=== PATIENT | male | born 1940 | race Caucasian/White ===

== ENCOUNTER → 2020-09-04 10:43 | Outpatient (CLI) | payer MEDICARE, SELFPAY ==
[2020-09-04] MEDS: COVID-19 VACC #1, MRNA(MOD) 100 MCG/0.5 ML VIAL IM (10:57)
== END ==
PROVIDERS: Visit Provider Internal Medicine
DX: Z23 Encounter for immunization (principal)
CPT/HCPCS: 0011A; 91301

== ENCOUNTER → 2020-10-02 10:15 | Outpatient (CLI) | payer MEDICARE, SELFPAY ==
[2020-10-02] MEDS: COVID-19 VACC #2, MRNA(MOD) 100 MCG/0.5 ML VIAL IM (10:25)
== END ==
PROVIDERS: Visit Provider Internal Medicine
DX: Z23 Encounter for immunization (principal)
CPT/HCPCS: 0012A; 91301

== ENCOUNTER → 2020-11-26 14:33 | Outpatient (CLI) | payer OTHER, SELFPAY ==
--- NOTE | 2020-11-26 14:36 | DI.ECHO.S_ITS ---
[facility] +---------+ : : [address] : [place] : : : : [id number] : : : : Phone: [phone]+ Echocardiogram Report + + :Name: ROSAURA LYNCH Study Date: 11/26/2020 Height: 67 in : :[facility] ReadingLocation: Weight: 225 lb : : Gender: Male BSA: 2.1 m2 : :: 1940 Age: 80 yrs BP: 170/98 mmHg: :Reason For Study: Congestive Heart Failure : :Ordering Physician: JOYCE, : :NABIL Performed By: Wali Burks : :Referring: NABIL COOK : + + Interpretation Summary Normal sinus rhythm. Normal LV size and wall thickness; there is subtle septal hypokinesis. EF is 55-60%. Suspect stage II diastolic dysfunction consistent with elevated LV filling pressure. Normal chamber sizes. No significant valvular abnormalities. No prior study available for comparison. Procedure: A two-dimensional transthoracic echocardiogram with color flow and Doppler was performed. The study quality was technically adequate. There is no prior echocardiogram noted for this patient. Left Ventricle: The left ventricle is normal in size and wall thickness. Left ventricular systolic function is normal. There is subtle septal hypokinesis. Otherwise normal wall motion. Diastology evaluation is complicated by conflicting data. E/A ratio is reversed which is most consistent with abnormal relaxation with normal filling pressure. However, pulmonary vein PW Doppler demonstrates diastolic flow predominance which is more common with elevated LV filling pressure. Right Ventricle: The right ventricle is normal in size and function. Atria: Both atria are normal in size. There is no Doppler evidence for an interatrial shunt. Mitral Valve: There is mild mitral annular calcification. There is trace mitral regurgitation. Aortic Valve: There is mild aortic valve sclerosis. No aortic regurgitation is present. Tricuspid Valve: The tricuspid valve is normal in structure and function. No tricuspid regurgitation. Pulmonary artery pressures cannot be estimated because of the lack of a measurable TR jet velocity but the IVC suggests a CVP of around 3 mmHg. Pulmonic Valve: The pulmonic valve is not well visualized. There is no pulmonic valvular regurgitation. Great Vessels: The aortic root is normal size. The ascending aorta could not be visualized. The IVC is of normal diameter and collapses greater than 50% with a sniff. This suggests a low right atrial pressure of 3 mm Hg. Pericardium/ Pleura There is no pericardial effusion. There is no pleural effusion. MMode/2D Measurements & Calculations LA A2 area: 15.1 cm2 RA long axis: 3.6 cm LA A4 area: 13.5 cm2 RA area: 12.6 cm2 LA length (vol): 4.4 cm RA vol: 37.7 ml LA vol: 39.9 ml RA : 17.7 ml/m2 LA vol index: 18.8 ml/m2 IVC diam: 1.2 cm RVD1 (basal): 2.5 cm TAPSE: 2.2 cm Doppler Measurements & Calculations Ao V2 max: 124.1 cm/sec LVOT Max Silvano: 116.9 cm/sec Ao V2 mean: 90.7 cm/sec LV V1 max P.5 mmHg Ao max P.2 mmHg LV V1 VTI: 22.3 cm Ao mean P.6 mmHg sev ratio: 0.90 Ao V2 VTI: 24.9 cm MV E max silvano: 66.2 cm/sec MV A max silvano: 92.3 cm/sec MV E/A: 0.72 Med Peak E' Silvano: 7.1 cm/sec E/E' med: 9.4 Lat Peak E' Silvano: 7.3 cm/sec E/E' lat: 9.1 E/e' average: 9.2 MV dec time: 0.29 sec Electronically signed by: Ranjana Rodriges M.D. on Reading Physician:11/27/2020 12:39 AM
== END ==
PROVIDERS: PCP Family Medicine; Referring Provider Internal Medicine; Visit Provider Internal Medicine
DX: I35.8 Other nonrheumatic aortic valve disorders (principal); I50.9 Heart failure, unspecified; J44.9 Chronic obstructive pulmonary disease, unspecified
CPT/HCPCS: 93306

== ENCOUNTER → 2020-12-07 09:01 | Outpatient (CLI) | payer OTHER, SELFPAY ==
[2020-12-07 10:08] LABS: COVID19 -Nasal RAPID Negative (Negative)
== END ==
PROVIDERS: PCP Family Medicine; Referring Provider Family Medicine; Visit Provider Family Medicine
DX: Z20.822 Contact with and (suspected) exposure to COVID-19 (principal)
CPT/HCPCS: 87635; C9803

== ENCOUNTER → 2020-12-07 09:05 | Outpatient (CLI) | payer OTHER, SELFPAY ==
[2020-12-07 09:59] LABS: PCO2 ABG 38.8 mmHg (35-45); pH ABG 7.41 (7.35-7.45)
[2020-12-07 10:00] LABS: Fractionated Inspired Oxygen 28; HCO3 ABG 24 mmol/L (22-26); Oxygen Saturation ABG 97 % (95-100); PO2 ABG 91 mmHg (80-100); TCO2 ABG 26 mmol/L (21-31)
--- NOTE | 2020-12-09 10:29 | PM.PFT.1 ---
Pulmonary Function Test Referral & Results Date Patient Seen: 12/07/20 Requesting provider: Juli Zacarias Indication: COPD Results: The spirometry demonstrates an FVC of 2.69 L which is 78% of predicted. The FEV1 was measured at 0.91 L which is 37% of predicted. The FEV1/FVC ratio was 34 which is 47% of predicted. Following the administration of bronchodilator there was no appreciable change. Lung volumes show an SVC of 3.05 L which is 79% of predicted. The diffusing capacity was measured at 10.56 which is 39% of predicted. No hemoglobin value was provided, so no correction for potential anemia could be made, if appropriate. The maximum voluntary ventilation was severely reduced Interpretation: This study demonstrates severe obstructive lung disease based on FEV1 of less than 1 L. There is no evidence of benefit following bronchodilator Lung volumes are also moderately reduced suggesting moderate restrictive lung disease There is also a severe reduction in diffusing capacity suggesting significant disease at the capillary alveolar level Altogether this is consistent with a diagnosis of COPD
== END ==
PROVIDERS: PCP Family Medicine; Referring Provider Internal Medicine; Visit Provider Internal Medicine
DX: J44.9 Chronic obstructive pulmonary disease, unspecified (principal); J96.11 Chronic respiratory failure with hypoxia; J96.12 Chronic respiratory failure with hypercapnia; R40.0 Somnolence; I50.813 Acute on chronic right heart failure; Z20.822 Contact with and (suspected) exposure to COVID-19; Z87.891 Personal history of nicotine dependence
CPT/HCPCS: 36600; 82805; 87635; 94060; 94726; 94729; C9803

== ENCOUNTER → 2020-12-28 12:13 | Outpatient (CLI) | payer OTHER, SELFPAY ==
[2020-12-28 13:09] LABS: Add Manual Diff / Slide Review NO; Basophils Absolute Auto 0 /uL (0-100); Basophils Percent Auto 0.4 % (0-2); Eosinophils Absolute Auto 200 /uL (0-450); Eosinophils Percent Auto 2.1 % (2-4); Hematocrit 42.4 % (41-53); Hemoglobin 14.3 g/dL (13.5-17.5); Lymphocytes Absolute Auto 1500 /uL (1100-4500); Lymphocytes Percent Auto 17.3 % (25-40); Mean Corpuscular HGB Conc 33.7 % (30-36); Mean Corpuscular Hemoglobin 31.3 PG (26-34); Mean Corpuscular Volume 93.1 fL (80-100); Monocytes Absolute Auto 600 /uL (0-900); Monocytes Percent Auto 6.9 % (3-14); Neutrophils Absolute Auto 6300 /uL (1500-7000); Neutrophils Percent Auto 73.3 % (50-75); Platelet Count 267 X10^3/uL (150-400); Red Blood Cell Count 4.56 X10^6/uL (4.5-5.9); Red Cell Distribution Width 13.7 % (11.6-14.8); White Blood Cell Count 8.5 X10^3/uL (4.5-11.0)
[2020-12-28 13:17] LABS: Alanine Aminotransferase 20 IU/L (<50); Albumin 4.3 g/dL (3.5-5.0); Albumin Globulin Ratio 1.3 (1.0-2.8); Alkaline Phosphatase 115 U/L (38-126); Aspartate Aminotransferase 27 IU/L (17-59); BUN Creatinine Ratio 17.6 (6-22); Bilirubin Total 0.4 mg/dL (0.2-1.3); Blood Urea Nitrogen 18 mg/dL (9-20); Calcium 9.5 mg/dL (8.4-10.2); Carbon Dioxide 25 mmol/L (22-32); Chloride 104 mmol/L (98-107); Estimated Glomerular Filt Rate > 60.0 mL/min (>60); Globulin 3.2 g/dL (1.7-4.1); Glucose 116 mg/dL (80-110); HEMOLYSIS < 15 (0-50); Potassium 4.2 mmol/L (3.4-5.1); Sodium 137 mmol/L (137-145); Total Protein 7.5 g/dL (6.3-8.2)
[2020-12-28 13:26] LABS: NT-proBNP (BNP-Adult 18+) 38 pg/mL (<450)
[2020-12-28 13:57] LABS: TSH w/ Reflex to FT4 1.76 uIU/mL (0.47-4.68)
== END ==
PROVIDERS: PCP Family Medicine; Referring Provider Internal Medicine; Visit Provider Internal Medicine
DX: J44.9 Chronic obstructive pulmonary disease, unspecified (principal); I50.813 Acute on chronic right heart failure; R40.0 Somnolence; J96.11 Chronic respiratory failure with hypoxia; J96.12 Chronic respiratory failure with hypercapnia
CPT/HCPCS: 36415; 80053; 83880; 84443; 85025

== ENCOUNTER → 2021-04-12 10:42 | Outpatient (CLI) | payer OTHER, SELFPAY ==
[2021-04-12 14:33] LABS: COVID19 -Nasal RAPID Negative (Negative)
== END ==
PROVIDERS: PCP Family Medicine; Visit Provider Nurse Practitioner Family
DX: Z20.822 Contact with and (suspected) exposure to COVID-19 (principal)
CPT/HCPCS: 87635

== ENCOUNTER → 2021-04-12 10:50 | Outpatient (CLI) | payer OTHER, SELFPAY ==
[2021-04-12 12:30] LABS: Blood Urea Nitrogen 21 mg/dL (9-20); Calcium 9.6 mg/dL (8.4-10.2); Carbon Dioxide 26 mmol/L (22-32); Chloride 100 mmol/L (98-107); Estimated Glomerular Filt Rate > 60.0 mL/min (>60); Glucose 97 mg/dL (80-110); HEMOLYSIS < 15 (0-50); Potassium 4.5 mmol/L (3.4-5.1); Sodium 136 mmol/L (137-145)
== END ==
PROVIDERS: PCP Family Medicine; Referring Provider Internal Medicine Cardiovascular Disease; Visit Provider Internal Medicine Cardiovascular Disease
DX: I50.33 Acute on chronic diastolic (congestive) heart failure (principal); Z20.822 Contact with and (suspected) exposure to COVID-19
CPT/HCPCS: 36415; 80048; 87635; C9803

== ENCOUNTER → 2021-04-13 10:27 | Outpatient (CLI) | payer OTHER, SELFPAY ==
--- NOTE | 2021-04-14 19:15 | DI.NM.S_ITS ---
PROCEDURE PERFORMED: Pharmacologic vasodilator stress and rest myocardial perfusion imaging with gating to assess ejection fraction and regional wall motion. ORDERING PROVIDER: Dr. Hilda Meza. INDICATIONS: The patient is a 80-year-old male with significant exertional dyspnea and atypical chest pain. VASODILATOR CARDIAC STRESS: Per protocol, 0.4 mg of regadenoson was infused with development of mild dyspnea but no chest discomfort. His resting ECG shows sinus rhythm with a RBBB and associated ST-segment abnormality with fairly low QRS voltage diffusely. With stress, there are no significant ST-segment shifts. He had occasional isolated PVCs, but no complex ectopy. Per protocol, 25.3 millicuries of technetium-99m Myoview was injected and he was imaged 10 minutes later using a gated SPECT acquisition protocol. The day prior he had been injected with 26.6 millicuries of technetium-99m Myoview while at rest and was imaged 20 minutes later, again using a gated SPECT acquisition protocol. FINDINGS: 1. Raw data: There is fairly good myocardial tracer uptake although there is fairly clear evidence for some diaphragmatic attenuation. The lung/heart ratio is mildly increased at 0.46, which can be a sign of pulmonary congestion. TID ratio is normal at 1.08. 2. Quantitated gated SPECT: Post-stress ejection fraction is estimated at 75% without any focal wall motion abnormality and specifically the inferior wall appears to have normal contractility relative to the other segments. Resting ejection fraction is estimated at 60%, although visually appears quite similar to that of the post-stress ejection fraction. Resting end- diastolic volume is normal at 88 mL. 3. Myocardial perfusion imaging: Post-stress supine images shows a mild-to- moderate perfusion defect throughout the inferior wall in a pattern that would be consistent with diaphragmatic attenuation, supported by its complete resolution on the prone images. The resting images show a similar perfusion pattern without any clear areas of improvement. IMPRESSION: 1. Probable normal myocardial perfusion study. 2. Moderate, fixed inferior perfusion defect that resolves on prone imaging, most consistent with diaphragmatic attenuation artifact. There is no compelling evidence for myocardial ischemia or previous myocardial infarction. 3. Normal left ventricular systolic function without any focal wall motion abnormality. The lung/heart ratio is mildly increased at 0.46, which can be a sign of pulmonary congestion, but clinical correlation is recommended. 4. No angina or ECG evidence of ischemia with vasodilator pharmacologic stress. He had a rare isolated PVCs but no complex ectopy. Edwar Scott - ROSALIE/mike/lebron doc#: [id number]/job#: [id number] dd: 04/14/2021 16:54:00 dt: 04/14/2021 18:54:00 DICTATING MD/COPIES TO: Keith Carlin MD; Hilda Meza M.D. COPIES MNE: JUAN FRANCISCO;
== END ==
PROVIDERS: PCP Family Medicine; Referring Provider Internal Medicine Cardiovascular Disease; Visit Provider Internal Medicine Cardiovascular Disease
DX: R07.9 Chest pain, unspecified (principal)
CPT/HCPCS: 78452; 93017; A9502; J2785

== ENCOUNTER 2021-11-03 17:48 | Emergency (ER) | payer OTHER, SELFPAY ==
[2021-11-03] VITALS (7 sets, daily range): BP systolic 137–151; BP diastolic 76–91; PULSE 81–105; RESP 17–32; TEMP 36.8; O2SAT 89–96
--- NOTE | 2021-11-03 18:17 | DI.RAD.S_ITS ---
PROCEDURE: XR CHEST 1V INDICATIONS: SOA TECHNIQUE: One view of the chest was acquired. COMPARISON: None. FINDINGS: Surgical changes and devices: None. Lungs and pleura: Mild increased pulmonary vascularity. Linear left basilar opacities present likely atelectasis. Mediastinum: Mediastinal contours appear normal. Heart size is normal. Bones and chest wall: No suspicious bony lesions. Overlying soft tissues appear unremarkable. IMPRESSION: Increased vascularity suggestive of edema. Dictated by: Lelo Javed M.D. on 11/03/2021 at 18:47 Approved by: Lelo Javed M.D. on 11/03/2021 at 18:48
[2021-11-03 18:52] LABS: Add Manual Diff / Slide Review NO; Basophils Absolute Auto 0 /uL (0-100); Basophils Percent Auto 0.3 % (0-2); Eosinophils Absolute Auto 0 /uL (0-450); Eosinophils Percent Auto 0.6 % (2-4); Hematocrit 37.2 % (41-53); Hemoglobin 12.9 g/dL (13.5-17.5); Lymphocytes Absolute Auto 400 /uL (1100-4500); Lymphocytes Percent Auto 6.6 % (25-40); Mean Corpuscular HGB Conc 34.7 % (30-36); Mean Corpuscular Hemoglobin 32.7 PG (26-34); Mean Corpuscular Volume 94.2 fL (80-100); Monocytes Absolute Auto 800 /uL (0-900); Monocytes Percent Auto 13.8 % (3-14); Neutrophils Absolute Auto 4600 /uL (1500-7000); Neutrophils Percent Auto 78.7 % (50-75); Platelet Count 191 X10^3/uL (150-400); Red Blood Cell Count 3.95 X10^6/uL (4.5-5.9); Red Cell Distribution Width 13.5 % (11.6-14.8); White Blood Cell Count 5.9 X10^3/uL (4.5-11.0)
[2021-11-03 19:13] LABS: Creatine Kinase 89 U/L (55-170); Lactate (Lactic Acid) 1.1 mmol/L (0.7-2.1); Magnesium 1.7 mg/dL (1.6-2.3)
[2021-11-03 19:14] LABS: Alanine Aminotransferase 23 IU/L (<50); Albumin 4.3 g/dL (3.5-5.0); Albumin Globulin Ratio 1.4 (1.0-2.8); Alkaline Phosphatase 80 U/L (38-126); Aspartate Aminotransferase 34 IU/L (17-59); BUN Creatinine Ratio 16.1 (6-22); Bilirubin Total 0.6 mg/dL (0.2-1.3); Blood Urea Nitrogen 19 mg/dL (9-20); Calcium 8.8 mg/dL (8.4-10.2); Carbon Dioxide 25 mmol/L (22-32); Chloride 99 mmol/L (98-107); Estimated Glomerular Filt Rate > 60 mL/min (>60); Globulin 3.1 g/dL (1.7-4.1); Glucose 112 mg/dL (80-110); HEMOLYSIS 27 (0-50); Lipase 42 U/L (23-300); Potassium 3.7 mmol/L (3.4-5.1); Sodium 135 mmol/L (137-145); Total Protein 7.4 g/dL (6.3-8.2)
[2021-11-03 19:23] LABS: NT-proBNP (BNP-Adult 18+) 129 pg/mL (<450)
[2021-11-03 19:25] LABS: Troponin I < 0.012 ng/mL (0.01-0.034)
[2021-11-03 19:29] LABS: Procalcitonin 0.07 ng/mL (<0.5)
[2021-11-03] MEDS: SODIUM CHLORIDE 0.9% 1,000 ML 125 ML IV (19:48)
[2021-11-03 19:49] LABS: COVID19 -Nasal RAPID POSITIVE (Negative)
--- NOTE | 2021-11-03 20:14 | ED_ITS ---
HPI - General Adult General Chief complaint: Shortness of Breath/Dyspnea Stated complaint: Chills, headache Time Seen by Provider: 11/03/21 18:16 Source: patient Mode of arrival: Ambulatory History of Present Illness HPI narrative: Patient is a 81-year-old male. Has a history of COPD. Is on home oxygen all the time. Normally 3 L. According to the patient his at baseline he has significant issues with getting around without becoming short of breath. Can normally take approximately 15 steps without having to stop and catch his breath. Patient is vaccinated against COVID-19. Has had 2 Moderna vaccines but has not had the booster vaccine. Over the past 24-48 hours he has developed chills and headache and a worsening of his dyspnea on exertion. He has not had to increase his oxygen use at home. His who is also vaccinated had COVID symptoms earlier this week but she has recovered. Patient denies chest pain. Is having a nonproductive cough. No abdominal pain. No rashes. No sinus congestion. No urinary symptoms. No change in bowel habits. Related Data Previous Rx's Medication Instructions Recorded nirmatrelvir 300 mg (150 mg x See Rx Instructions .ROUTE 11/03/21 2)-ritonavir 100 mg tablet (EUA) .COMPLEX #15 tab (Paxlovid 300 mg () Allergies Allergy/AdvReac Type Severity Reaction Status Date / Time No Known Drug Allergies Allergy Verified 11/03/21 18:01 Review of Systems Review of Systems ROS Unobtainable: All systems reviewed & are unremarkable except as noted in HPI and below Patient History Medical History COPD (chronic obstructive pulmonary disease) Social History marital status: lives independently: Yes Exam Initial Vital Signs Initial Vital Signs: Vital Signs Temperature 98.2 F 11/03/21 17:56 Pulse Rate 105 H 11/03/21 17:56 Respiratory Rate 32 H 11/03/21 17:56 Blood Pressure 151/78 H 11/03/21 17:56 Pulse Oximetry 89 L 11/03/21 17:56 Const General: cooperative and well groomed [facility] Head: normal to inspection and normocephalic Eyes General: Yes appearance normal, both eyes and all related structures Chest Chest: normal inspection of the chest Resp Effort & Inspection: labored, no respiratory distress and tachypneic Cardio Rate: regular rate Rhythm: regular rhythm GI Inspection: normal to inspection Palpation: soft and No tender Skin General: no rashes or lesions noted Neuro General: patient alert, patient awake, patient oriented x3 and moves all extremities Extrem General: No edema Psych Appearance: grossly normal Scores GCS Yessi coma scale eye opening: Spontaneous Yessi coma scale verbal response: Orientated [place] coma scale motor response: Obey commands [place] coma scale total score: 15 Course Orders Ordered: ED Orders 11/03/21 18:07 EKG-12 Lead Stat Measure peak expiratory flow ONCE RT Consult Eval and Treat Now 11/03/21 18:17 XR chest 1V Stat 11/03/21 18:41 BNP [NT-proBNP (BNP-Adult 18+)] Stat COVID19 -Nasal RAPID/Pre-Proc Stat Complete Blood Count AUTO DIFF Stat Comprehensive Metabolic Panel Stat Lactate (Lactic Acid) Stat Lipase Stat Magnesium Stat Procalcitonin Stat Troponin & CK Cardiac Panel Stat 11/03/21 19:20 Blood Culture Stat Discontinued Medications Sodium Chloride (Normal Saline 0.9%) 1,000 mls @ 125 mls/hr IV CONT GAIL Last Infusion: 11/03/21 20:13 Dose: 0 mls/hr Documented by: Admin: 11/03/21 19:48 Dose: 125 mls/hr Documented by: LUDWIG Vital Signs Vital signs: Vital Signs - 8 hr 11/03/21 17:56 11/03/21 18:39 11/03/21 18:40 Temperature 98.2 F Pulse Rate 105 H 94 H Respiratory Rate 32 H Blood Pressure 151/78 H 149/76 H Pulse Oximetry 89 L 93 93 11/03/21 19:00 11/03/21 19:30 11/03/21 20:00 Temperature Pulse Rate 87 86 81 Respiratory Rate 22 17 22 Blood Pressure 145/91 H 140/77 Pulse Oximetry 95 96 95 11/03/21 20:01 Temperature Pulse Rate 81 Respiratory Rate 23 Blood Pressure 137/83 Pulse Oximetry 96 Medical Decision Making Lab Data Lab results reviewed: Yes I reviewed the patient's lab results. Result diagrams: 11/03/21 18:41 11/03/21 18:41 Labs: Lab Results 05/25/22 05/25/22 05/25/22 Range/Units 18:41 18:41 18:41 WBC 5.9 (4.5-11.0) X10^3/uL RBC 3.95 L (4.5-5.9) X10^6/uL Hgb 12.9 L (13.5-17.5) g/dL Hct 37.2 L (41-53) % MCV 94.2 (80-100) fL MCH 32.7 (26-34) PG MCHC 34.7 (30-36) % RDW 13.5 (11.6-14.8) % Plt Count 191 (150-400) X10^3/uL Neut % (Auto) 78.7 H (50-75) % Lymph % (Auto) 6.6 L (25-40) % [place] % (Auto) 13.8 (3-14) % Eos % (Auto) 0.6 L (2-4) % Baso % (Auto) 0.3 (0-2) % Neut # (Auto) 4600 (0777-4687) /uL Lymph # (Auto) 400 L (0007-8710) /uL [place] # (Auto) 800 (0-900) /uL Eos # (Auto) 0 (0-450) /uL Baso # (Auto) 0 (0-100) /uL Sodium 135 L (137-145) mmol/L Potassium 3.7 (3.4-5.1) mmol/L Chloride 99 (98-107) mmol/L Carbon Dioxide 25 (22-32) mmol/L BUN 19 (9-20) mg/dL Creatinine 1.18 (0.66-1.25) mg/dL Estimated GFR > 60 (>60) mL/min BUN/Creatinine Ratio 16.1 (6-22) Glucose 112 H (80-110) mg/dL Lactate (0.7-2.1) mmol/L Calcium 8.8 (8.4-10.2) mg/dL Magnesium (1.6-2.3) mg/dL Total Bilirubin 0.6 (0.2-1.3) mg/dL AST 34 (17-59) IU/L ALT 23 (<50) IU/L Alkaline Phosphatase 80 (38-126) U/L Total Creatine Kinase (55-170) U/L CK-MB (CK-2) CK-MB (CK-2) Rel Index Troponin I (0.01-0.034) ng/mL NT-Pro-B Natriuret Pep (<450) pg/mL Total Protein 7.4 (6.3-8.2) g/dL Albumin 4.3 (3.5-5.0) g/dL Globulin 3.1 (1.7-4.1) g/dL Albumin/Globulin Ratio 1.4 (1.0-2.8) Lipase (23-300) U/L Procalcitonin (<0.5) ng/mL SARS-CoV-2 (PCR) Positive H (Negative) 11/03/21 11/03/21 11/03/21 Range/Units 18:41 18:41 18:41 WBC (4.5-11.0) X10^3/uL RBC (4.5-5.9) X10^6/uL Hgb (13.5-17.5) g/dL Hct (41-53) % MCV (80-100) fL MCH (26-34) PG MCHC (30-36) % RDW (11.6-14.8) % Plt Count (150-400) X10^3/uL Neut % (Auto) (50-75) % Lymph % (Auto) (25-40) % [place] % (Auto) (3-14) % Eos % (Auto) (2-4) % Baso % (Auto) (0-2) % Neut # (Auto) (8485-7658) /uL Lymph # (Auto) (2085-7230) /uL [place] # (Auto) (0-900) /uL Eos # (Auto) (0-450) /uL Baso # (Auto) (0-100) /uL Sodium (137-145) mmol/L Potassium (3.4-5.1) mmol/L Chloride (98-107) mmol/L Carbon Dioxide (22-32) mmol/L BUN (9-20) mg/dL Creatinine (0.66-1.25) mg/dL Estimated GFR (>60) mL/min BUN/Creatinine Ratio (6-22) Glucose (80-110) mg/dL Lactate 1.1 (0.7-2.1) mmol/L Calcium (8.4-10.2) mg/dL Magnesium 1.7 (1.6-2.3) mg/dL Total Bilirubin (0.2-1.3) mg/dL AST (17-59) IU/L ALT (<50) IU/L Alkaline Phosphatase (38-126) U/L Total Creatine Kinase 89 (55-170) U/L CK-MB (CK-2) TNP CK-MB (CK-2) Rel Index TNP Troponin I < 0.012 (0.01-0.034) ng/mL NT-Pro-B Natriuret Pep (<450) pg/mL Total Protein (6.3-8.2) g/dL Albumin (3.5-5.0) g/dL Globulin (1.7-4.1) g/dL Albumin/Globulin Ratio (1.0-2.8) Lipase 42 (23-300) U/L Procalcitonin 0.07 (<0.5) ng/mL SARS-CoV-2 (PCR) (Negative) 11/03/21 Range/Units 18:41 WBC (4.5-11.0) X10^3/uL RBC (4.5-5.9) X10^6/uL Hgb (13.5-17.5) g/dL Hct (41-53) % MCV (80-100) fL MCH (26-34) PG MCHC (30-36) % RDW (11.6-14.8) % Plt Count (150-400) X10^3/uL Neut % (Auto) (50-75) % Lymph % (Auto) (25-40) % [place] % (Auto) (3-14) % Eos % (Auto) (2-4) % Baso % (Auto) (0-2) % Neut # (Auto) (1179-5635) /uL Lymph # (Auto) (7157-7088) /uL [place] # (Auto) (0-900) /uL Eos # (Auto) (0-450) /uL Baso # (Auto) (0-100) /uL Sodium (137-145) mmol/L Potassium (3.4-5.1) mmol/L Chloride (98-107) mmol/L Carbon Dioxide (22-32) mmol/L BUN (9-20) mg/dL Creatinine (0.66-1.25) mg/dL Estimated GFR (>60) mL/min BUN/Creatinine Ratio (6-22) Glucose (80-110) mg/dL Lactate (0.7-2.1) mmol/L Calcium (8.4-10.2) mg/dL Magnesium (1.6-2.3) mg/dL Total Bilirubin (0.2-1.3) mg/dL AST (17-59) IU/L ALT (<50) IU/L Alkaline Phosphatase (38-126) U/L Total Creatine Kinase (55-170) U/L CK-MB (CK-2) CK-MB (CK-2) Rel Index Troponin I (0.01-0.034) ng/mL NT-Pro-B Natriuret Pep 129 (<450) pg/mL Total Protein (6.3-8.2) g/dL Albumin (3.5-5.0) g/dL Globulin (1.7-4.1) g/dL Albumin/Globulin Ratio (1.0-2.8) Lipase (23-300) U/L Procalcitonin (<0.5) ng/mL SARS-CoV-2 (PCR) (Negative) Imaging Data Chest x-ray: Radiologist's Impression: [address] [address] XRay Report Signed Patient: Edwar Scott MR#: [id number] : 1940 Acct:[id number] Age/Sex: 81 / M Date of Service: 11/03/21 Loc: ED Accession Number: [id number] ?? Procedure: XR chest 1V Ordering Provider: Carlos Marquez D.O. PROCEDURE:? XR CHEST 1V ? INDICATIONS:? SOA ? TECHNIQUE:? One view of the chest was acquired.? ? COMPARISON:? None. ? FINDINGS:? ? Surgical changes and devices:? None.? ? Lungs and pleura:? Mild increased pulmonary vascularity.? Linear left basilar opacities present likely atelectasis. ? Mediastinum:? Mediastinal contours appear normal.? Heart size is normal.? ? Bones and chest wall:? No suspicious bony lesions.? Overlying soft tissues appear unremarkable.? ? IMPRESSION:? Increased vascularity suggestive of edema. ? ? Dictated by: Lelo Javed M.D. on 11/03/2021 at 18:47 ? ? Approved by: Lelo Javed M.D. on 11/03/2021 at 18:48?? ECG Data Attestation: I personally reviewed and interpreted this ECG as follows: Interpretation: Sinus rhythm Ventricular rate 93 Normal axis QRS 136 milliseconds QTC [address] T wave changes MDM Narrative Medical decision making narrative: Patient's COVID test today is positive. On her 3 L of oxygen by nasal cannula his oxygen saturations were 95% or greater. Patient denies chest pain. Low suspicion for ACS. I do suspect that his presenting symptoms are related to the COVID-19. Had a discussion with the patient as at bedside regarding op tions. We discussed his very real potential for worsening given his significant underlying respiratory pathology. We discussed the risks and benefits of being admitted to the hospital which would be observation and being in the hospital with his symptoms were to worsen versus being discharged home. Informed the patient that he does have oxygen at home that he could increase if needed. He does have a pulse oximeter at home. We discussed that there would not be any specific treatment with being admitted to the hospital would be for observation of worsening respiratory status which she is at risk for given his issues. After this discussion the patient opted to be discharged home. He is alert oriented x3. Has a GCS of 15. In my opinion has the capacity to make decisions. He is a candidate for Paxlovid being given his renal function today does not need renal adjustments. This was sent to pharmacy his choice. We discussed returning to the emergency department if his symptoms worsen or if he finds he is needing more than 5 L of oxygen by nasal cannula to maintain his her respiratory status. He is with his who can observe him. He will return if his symptoms worsen. Discharge Plan Departure Patient Disposition: Home Clinical Impression: COVID-19, COPD (chronic obstructive pulmonary disease) Instructions: DI for COVID-19 (Suspected or Confirmed ) Activity Restrictions/Additional Instructions: A prescription for paxlovid was transmitted to [facility] pharmacy. It is a new medication for the oral treatment of COVID-19. Please start taking it as directed. Use your oxygen at home like we discussed. You can increase your oxygen to 4-5L as needed however if you are consistently needing above 5L in you need to return to the emergency department. If you have any other worsening symptoms please return to the emergency department as well. Contact your primary doctor for follow-up. Prescriptions: New Paxlovid (EUA) 150 mg x 2- 100 mg tablet See Rx Instructions .ROUTE .COMPLEX Qty: 15 0RF Rx Instructions: take ONE 150 mg tablet of nirmatrelvir with ONE 100 mg tablet of ritonavir twice daily for 5 days Referrals: Oli Cole MD [Primary Care Provider] -
== END 2021-11-03 20:42 | disposition home or self-care (01) ==
PROVIDERS: Emergency Provider Emergency Medicine; PCP Family Medicine
DX: U07.1 COVID-19 (principal); J44.9 Chronic obstructive pulmonary disease, unspecified
CPT/HCPCS: 36415; 71045; 80053; 82550; 83605; 83690; 83735; 83880; 84145; 84484; 85025; 87040; 87635; 93005; 99284; 99285; C9803

== ENCOUNTER 2022-12-03 20:01 | Inpatient (IN) | payer OTHER, SELFPAY ==
[2022-12-03] VITALS (20 sets, daily range): BP systolic 128–182; BP diastolic 72–91; PULSE 103–150; RESP 22–38; TEMP 36.8; O2SAT 90–97
--- NOTE | 2022-12-03 20:06 | DI.RAD.S_ITS ---
PROCEDURE: XR CHEST 1V INDICATIONS: short of breath TECHNIQUE: One view of the chest was acquired. COMPARISON: [facility], CR, XR CHEST 1V, 11/03/2021, 18:20. FINDINGS: Surgical changes and devices: None. Lungs and pleura: Multifocal right and left basilar pulmonary infiltrate and/or atelectasis. Pleural spaces are clear Mediastinum: Mediastinal contours appear normal. Heart size is normal. Bones and chest wall: No suspicious bony lesions. Overlying soft tissues appear unremarkable. Generalized decreased osseous mineralization noted. IMPRESSION: Multifocal atelectasis and or infiltrate Approved by: Kaiden Daniel M.D. on 12/03/2022 at 19:38
[2022-12-03] MEDS: ALBUTEROL/IPRATROPIUM 3 ML AMPUL INH (20:12)
[2022-12-03 20:17] LABS: Add Manual Diff / Slide Review NO; Basophils Absolute Auto 0 /uL (0-100); Basophils Percent Auto 0.5 % (0-2); Eosinophils Absolute Auto 100 /uL (0-450); Eosinophils Percent Auto 0.9 % (2-4); Hematocrit 41.5 % (41-53); Hemoglobin 13.7 g/dL (13.5-17.5); Lymphocytes Absolute Auto 900 /uL (1100-4500); Lymphocytes Percent Auto 12.9 % (25-40); Mean Corpuscular HGB Conc 33.1 % (30-36); Mean Corpuscular Hemoglobin 31.2 PG (26-34); Mean Corpuscular Volume 94.3 fL (80-100); Monocytes Absolute Auto 900 /uL (0-900); Monocytes Percent Auto 13.8 % (3-14); Neutrophils Absolute Auto 4900 /uL (1500-7000); Neutrophils Percent Auto 71.9 % (50-75); Platelet Count 219 X10^3/uL (150-400); Red Cell Distribution Width 14.3 % (11.6-14.8); White Blood Cell Count 6.8 X10^3/uL (4.5-11.0)
[2022-12-03 20:24] LABS: Lactate (Lactic Acid) 1.5 mmol/L (0.7-2.1)
[2022-12-03] MEDS: methylPREDNISolone 125 MG/2 ML VIAL IV (20:24)
[2022-12-03 20:25] LABS: Alanine Aminotransferase 23 IU/L (<50); Albumin 4.2 g/dL (3.5-5.0); Albumin Globulin Ratio 1.2 (1.0-2.8); Alkaline Phosphatase 108 U/L (38-126); Aspartate Aminotransferase 30 IU/L (17-59); BUN Creatinine Ratio 15.2 (6-22); Bilirubin Total 0.4 mg/dL (0.2-1.3); Blood Urea Nitrogen 16 mg/dL (9-20); Calcium 8.9 mg/dL (8.4-10.2); Carbon Dioxide 28 mmol/L (22-32); Chloride 100 mmol/L (98-107); Creatine Kinase 172 U/L (55-170); Estimated Glomerular Filt Rate > 60 mL/min (>60); Globulin 3.6 g/dL (1.7-4.1); Glucose 117 mg/dL (80-110); HEMOLYSIS < 15 (0-50); Lipase 37 U/L (23-300); Potassium 4.3 mmol/L (3.4-5.1); Sodium 136 mmol/L (137-145); Total Protein 7.8 g/dL (6.3-8.2)
[2022-12-03 20:37] LABS: NT-proBNP (BNP-Adult 18+) 373 pg/mL (<450); Troponin I < 0.012 ng/mL (0.01-0.034)
[2022-12-03] MEDS: ALBUTEROL 2.5 MG/3 ML NEB (ADULT) 10 MG INH (20:38)
[2022-12-03 20:41] LABS: Procalcitonin 0.06 ng/mL (<0.5)
[2022-12-03 21:25] LABS: Adenovirus Not Detected (Not Detect); B. parapertussis Not Detected (Not Detecte); Bordetella pertussis Not Detected (Not Detecte); Chlamydophila pneumoniae Not Detected (Not Detect); Coronavirus 229E Not Detected (Not Detect); Coronavirus HKU1 Not Detected (Not Detect); Coronavirus NL 63 Not Detected (Not Detect); Coronavirus OC43 Not Detected (Not Detect); Human Metapneumovirus Not Detected (Not Detect); Human Rhinovirus/Enterovirus Not Detected (Not Detect); Influenza A Not Detected (Not Detect); Influenza B Not Detected (Not Detect); Mycoplasma pneumoniae Not Detected (Not Detect); Parainfluenza Virus 1 Not Detected (Not Detect); Parainfluenza Virus 2 Not Detected (Not Detect); Parainfluenza Virus 3 Not Detected (Not Detect); Parainfluenza Virus 4 Detected (Not Detect); Respiratory Syncytial Virus Not Detected (Not Detect); SARS- CoV-2 Not Detected (Not Detecte)
--- NOTE | 2022-12-03 22:21 | ED.SOB ---
HPI - SOB/Dyspnea General Chief Complaint: Shortness of Breath/Dyspnea Stated Complaint: sob/cough Time Seen by Provider: 12/03/22 20:06 Source: patient and EMS Mode of arrival: EMS History of Present Illness HPI Narrative: Patient is a 82-year-old male history of COPD chronically on home oxygen 3 L presenting with upper respiratory like symptoms and worsening shortness of breath. He reports that he and his have both had a cold. Today his breathing got significantly worse was found to be hypoxic in the 80s by EMS on his home O2. He has a productive cough reports slightly more mucus normal. No chest pain. He is pursed lip breathing but reports that he is always pursed lip breathing. Related Data Previous Rx's Medication Instructions Recorded nirmatrelvir 300 mg (150 mg See Rx Instructions PO .COMPLEX 11/03/21 x2)-ritonavir 100 mg tablet,dose #15 tabs pack(EUA) (Paxlovid) Allergies Allergy/AdvReac Type Severity Reaction Status Date / Time No Known Drug Allergies Allergy Verified 11/03/21 18:01 Review of Systems Review of Systems ROS Unobtainable: All systems reviewed & are unremarkable except as noted in HPI and below Patient History Medical History COPD (chronic obstructive pulmonary disease) Social History marital status: household members: spouse lives independently: Yes Smoking Status: Former smoker Smoking Status: Former smoker alcohol intake frequency: a few times a week Alcohol type: wine Substance Use Type: does not use Exam Initial Vital Signs Initial Vital Signs: Vital Signs Pulse Rate 122 H 12/03/22 20:08 Respiratory Rate 26 H 12/03/22 20:08 Pulse Oximetry 90 L 12/03/22 20:08 GENERAL: Alert 82-year-old male moderate respiratory distress chronically ill HEENT: Head atraumatic,EOMI, pupils reactive, face symmetric, [moist] mucous membranes CARDIOVASCULAR: Regular rate and rhythm without murmurs, rubs or gallops. RESPIRATORY: Decreased breath sounds bilaterally with bilateral wheezing. ABDOMEN: Soft, nontender. Normoactive bowel sounds all 4 quadrants. No guarding or rebound. EXTREMITIES: Normal range of motion, no clubbing or edema. Neurovascularly intact NEUROLOGICAL: Alert and oriented x4. SKIN: Warm, dry, no laceration, no petechiae, no rashes or lesions. Course Orders Ordered: ED Orders 12/03/22 23:30 Blood Culture Stat Albuterol (Albuterol 2.5 Mg/3 Ml Neb (Adult)) 2.5 mg INH [id number] PRN PRN Reason: Wheezing Last Admin: 12/04/22 04:00 Dose: 2.5 mg Documented By: MR Albuterol/Ipratropium (Albuterol/Ipratropium 3 Ml Ampul) 3 ml INH [id number] [id number] Last Admin: 12/04/22 07:21 Dose: 3 ml Documented By: KRISTINE Budesonide (Budesonide 0.5 Mg/2 Ml Neb) 0.5 mg INH RTBID GAIL Last Admin: 12/04/22 07:32 Dose: 0.5 mg Documented By: KRISTINE Sodium Chloride (Sodium Chloride 0.9% Flush) 10 ml IV PRN PRN PRN Reason: Flush Sodium Chloride (Sodium Chloride 0.9% Flush) 10 ml IV BID GAIL Discontinued Medications Albuterol (Albuterol 2.5 Mg/3 Ml Neb (Adult)) 10 mg INH NOW ONE Stop: 12/03/22 20:33 Last Admin: 12/03/22 20:38 Dose: 10 mg Documented By: Albuterol (Albuterol 2.5 Mg/3 Ml Neb (Adult)) 2.5 mg INH [id number] GAIL Albuterol/Ipratropium (Albuterol/Ipratropium 3 Ml Ampul) 3 ml INH NOW ONE Stop: 12/03/22 20:07 Last Admin: 12/03/22 20:12 Dose: 3 ml Documented By: MR Ceftriaxone Sodium 2,000 mg/ (Sodium Chloride) 100 mls @ 200 mls/hr IV NOW ONE Stop: 12/03/22 23:22 Last Infusion: 12/04/22 00:21 Dose: 0 mls/hr Documented By: Admin: 12/03/22 23:51 Dose: 200 mls/hr Documented By: CESILIA Azithromycin 500 mg/ Dextrose 250 mls @ 250 mls/hr IV NOW ONE Stop: 12/03/22 23:22 Last Infusion: 12/04/22 02:07 Dose: 0 mls/hr Documented By: Admin: 12/04/22 00:29 Dose: 250 mls/hr Documented By: CESILIA Methylprednisolone (Methylprednisolone 125 Mg/2 Ml Vial) 125 mg IV NOW ONE Stop: 12/03/22 20:07 Last Admin: 12/03/22 20:24 Dose: 125 mg Documented By: CESILIA Vital Signs Vital signs: Vital Signs - 8 hr 12/03/22 20:09 12/03/22 20:14 Temperature 98.2 F Pulse Rate 150 H 103 H Respiratory Rate 24 38 H Blood Pressure 171/91 H Pulse Oximetry 92 93 Oxygen Delivery Method Nasal Cannula Nasal Cannula Oxygen Flow Rate 3 3 MDM - SOB/Dyspnea Lab Data 12/03/22 20:05 12/03/22 20:05 Labs: Lab Results 12/03/22 12/03/22 12/03/22 Range/Units 20:05 20:05 20:05 WBC 6.8 (4.5-11.0) X10^3/uL RBC 4.40 L (4.5-5.9) X10^6/uL Hgb 13.7 (13.5-17.5) g/dL Hct 41.5 (41-53) % MCV 94.3 (80-100) fL MCH 31.2 (26-34) PG MCHC 33.1 (30-36) % RDW 14.3 (11.6-14.8) % Plt Count 219 (150-400) X10^3/uL Neut % (Auto) 71.9 (50-75) % Lymph % (Auto) 12.9 L (25-40) % [place] % (Auto) 13.8 (3-14) % Eos % (Auto) 0.9 L (2-4) % Baso % (Auto) 0.5 (0-2) % Neut # (Auto) 4900 (8071-9010) /uL Lymph # (Auto) 900 L (6561-6415) /uL [place] # (Auto) 900 (0-900) /uL Eos # (Auto) 100 (0-450) /uL Baso # (Auto) 0 (0-100) /uL Sodium 136 L (137-145) mmol/L Potassium 4.3 (3.4-5.1) mmol/L Chloride 100 (98-107) mmol/L Carbon Dioxide 28 (22-32) mmol/L BUN 16 (9-20) mg/dL Creatinine 1.05 (0.66-1.25) mg/dL Estimated GFR > 60 (>60) mL/min BUN/Creatinine Ratio 15.2 (6-22) Glucose 117 H (80-110) mg/dL Lactate 1.5 (0.7-2.1) mmol/L Calcium 8.9 (8.4-10.2) mg/dL Total Bilirubin 0.4 (0.2-1.3) mg/dL AST 30 (17-59) IU/L ALT 23 (<50) IU/L Alkaline Phosphatase 108 (38-126) U/L Total Creatine Kinase 172 H (55-170) U/L CK-MB (CK-2) TNP CK-MB (CK-2) Rel Index TNP Troponin I < 0.012 (0.01-0.034) ng/mL NT-Pro-B Natriuret Pep 373 (<450) pg/mL Total Protein 7.8 (6.3-8.2) g/dL Albumin 4.2 (3.5-5.0) g/dL Globulin 3.6 (1.7-4.1) g/dL Albumin/Globulin Ratio 1.2 (1.0-2.8) Lipase 37 (23-300) U/L Procalcitonin 0.06 (<0.5) ng/mL Chlamy pneumoniae PCR (Not Detect) Adenovirus (PCR) (Not Detect) B. pertussis DNA (PCR) (Not Detecte) B.parapertussis DNA PCR (Not Detecte) Coronavirus OC43 (PCR) (Not Detect) Coronavirus HKU1 (PCR) (Not Detect) Coronavirus 229E (PCR) (Not Detect) SARS-CoV-2 (PCR) (Not Detecte) Coronavirus NL63 (PCR) (Not Detect) Human Metapneumovir PCR (Not Detect) Influenza Type A (PCR) (Not Detect) Influenza Type B (PCR) (Not Detect) M. pneumoniae (PCR) (Not Detect) Parainfluenza 1 (PCR) (Not Detect) Parainfluenza 2 (PCR) (Not Detect) Parainfluenza 3 (PCR) (Not Detect) Parainfluenza 4 (PCR) (Not Detect) RSV (PCR) (Not Detect) Entero/Rhino (PCR) (Not Detect) 12/03/22 Range/Units 20:05 WBC (4.5-11.0) X10^3/uL RBC (4.5-5.9) X10^6/uL Hgb (13.5-17.5) g/dL Hct (41-53) % MCV (80-100) fL MCH (26-34) PG MCHC (30-36) % RDW (11.6-14.8) % Plt Count (150-400) X10^3/uL Neut % (Auto) (50-75) % Lymph % (Auto) (25-40) % [place] % (Auto) (3-14) % Eos % (Auto) (2-4) % Baso % (Auto) (0-2) % Neut # (Auto) (0098-4198) /uL Lymph # (Auto) (9531-2720) /uL [place] # (Auto) (0-900) /uL Eos # (Auto) (0-450) /uL Baso # (Auto) (0-100) /uL Sodium (137-145) mmol/L Potassium (3.4-5.1) mmol/L Chloride (98-107) mmol/L Carbon Dioxide (22-32) mmol/L BUN (9-20) mg/dL Creatinine (0.66-1.25) mg/dL Estimated GFR (>60) mL/min BUN/Creatinine Ratio (6-22) Glucose (80-110) mg/dL Lactate (0.7-2.1) mmol/L Calcium (8.4-10.2) mg/dL Total Bilirubin (0.2-1.3) mg/dL AST (17-59) IU/L ALT (<50) IU/L Alkaline Phosphatase (38-126) U/L Total Creatine Kinase (55-170) U/L CK-MB (CK-2) CK-MB (CK-2) Rel Index Troponin I (0.01-0.034) ng/mL NT-Pro-B Natriuret Pep (<450) pg/mL Total Protein (6.3-8.2) g/dL Albumin (3.5-5.0) g/dL Globulin (1.7-4.1) g/dL Albumin/Globulin Ratio (1.0-2.8) Lipase (23-300) U/L Procalcitonin (<0.5) ng/mL Chlamy pneumoniae PCR Not detected (Not Detect) Adenovirus (PCR) Not detected (Not Detect) B. pertussis DNA (PCR) Not detected (Not Detecte) B.parapertussis DNA PCR Not detected (Not Detecte) Coronavirus OC43 (PCR) Not detected (Not Detect) Coronavirus HKU1 (PCR) Not detected (Not Detect) Coronavirus 229E (PCR) Not detected (Not Detect) SARS-CoV-2 (PCR) Not detected (Not Detecte) Coronavirus NL63 (PCR) Not detected (Not Detect) Human Metapneumovir PCR Not detected (Not Detect) Influenza Type A (PCR) Not detected (Not Detect) Influenza Type B (PCR) Not detected (Not Detect) M. pneumoniae (PCR) Not detected (Not Detect) Parainfluenza 1 (PCR) Not detected (Not Detect) Parainfluenza 2 (PCR) Not detected (Not Detect) Parainfluenza 3 (PCR) Not detected (Not Detect) Parainfluenza 4 (PCR) Detected H (Not Detect) RSV (PCR) Not detected (Not Detect) Entero/Rhino (PCR) Not detected (Not Detect) Imaging Data Chest x-ray: Radiologist's Impression: PROCEDURE:? XR CHEST 1V ? INDICATIONS:? short of breath ? TECHNIQUE:? One view of the chest was acquired.? ? COMPARISON:? [facility], , XR CHEST 1V, 11/03/2021, 18:20. ? FINDINGS:? ? Surgical changes and devices:? None.? ? Lungs and pleura:? Multifocal right and left basilar pulmonary infiltrate and/or atelectasis.? Pleural spaces are clear ? Mediastinum:? Mediastinal contours appear normal.? Heart size is normal.? ? Bones and chest wall:? No suspicious bony lesions.? Overlying soft tissues appear unremarkable.? Generalized decreased osseous mineralization noted. ? IMPRESSION:? ? Multifocal atelectasis and or infiltrate ? ? ? Approved by: Kaiden Daniel M.D. on 12/03/2022 at 19:38? ECG Data Interpretation: Sinus arrhythmia rate 110 ID interval 178 QRS 128 QTC 479 right bundle-branch block noted similar to previous EKG without ST changes MDM Narrative Medical decision making narrative: Patient 82-year-old male history of COPD chronically on home O2 presenting with increasing shortness of breath and viral illness type symptoms. He is found to be positive for parainfluenza. Chest x-ray shows multifocal atelectasis and/or infiltrate. He initially required DuoNeb continuous albuterol which did improve his breathing. However he still feels like he is not back to baseline. He has no leukocytosis no anemia no CONNIE. He is a negative troponin BNP is also negative. Symptoms are consistent with a COPD exacerbation with a viral illness. He is also given Solu-Medrol 125. At this time no he has improved he is still not back to baseline. He is given Rocephin and Zithromax for possible pneumonia. Dr. Wilburn updated on patient's symptoms test results and accepts patient Discharge Plan Departure Patient Disposition: Admitted As Inpatient Clinical Impression: Acute exacerbation of chronic obstructive airways disease Admit Date/Time: 12/03/22 23:35 Admit Provider: Abbi Wilburn
[2022-12-03] MEDS: cefTRIAXone 2,000 MG in SODIUM CHLORIDE 0.9% 100 ML 200 MG IV (23:51)
[2022-12-04] VITALS (14 sets, daily range): BP systolic 130–149; BP diastolic 58–89; PULSE 86–108; RESP 16–32; TEMP 36.3–37.3; O2SAT 90–96; BMI 364.8
[2022-12-04] MEDS: AZITHROMYCIN 500 MG in DEXTROSE 5% IN WATER 250 ML 250 MG IV (00:29)
[2022-12-04] MEDS: ALBUTEROL 2.5 MG/3 ML NEB (ADULT) INH (04:00)
--- NOTE | 2022-12-04 05:26 | PC.ADMIT ---
[id number] Admission Note: The patient,Edwar Scott,82 y/o, was given written information regarding hospital policies, unit procedures and contact persons. Patient's smoking status: Former smoker. Vital Signs - 8 hr 12/03/22 21:30 12/03/22 21:31 12/03/22 21:31 Temperature Pulse Rate 122 H 124 H Respiratory Rate 22 22 Blood Pressure 165/83 H Pulse Oximetry 92 93 Oxygen Delivery Method Oxygen Flow Rate 12/03/22 21:45 12/03/22 22:00 12/03/22 22:00 Temperature Pulse Rate 125 H 119 H Respiratory Rate 26 H 23 Blood Pressure 165/79 H Pulse Oximetry 93 92 Oxygen Delivery Method Nasal Cannula Oxygen Flow Rate 2 12/03/22 22:15 12/03/22 22:30 12/03/22 22:30 Temperature Pulse Rate 118 H 115 H Respiratory Rate 24 26 H Blood Pressure 134/79 Pulse Oximetry 93 93 Oxygen Delivery Method Nasal Cannula Oxygen Flow Rate 2 12/03/22 22:45 12/03/22 23:00 12/03/22 23:00 Temperature Pulse Rate 114 H 111 H Respiratory Rate 30 H 23 Blood Pressure 128/76 Pulse Oximetry 93 92 Oxygen Delivery Method Oxygen Flow Rate 12/03/22 23:15 12/03/22 23:30 12/03/22 23:30 Temperature Pulse Rate 111 H 108 H Respiratory Rate 31 H 27 H Blood Pressure 138/72 Pulse Oximetry 92 93 Oxygen Delivery Method Oxygen Flow Rate 12/03/22 23:45 12/04/22 00:00 12/04/22 00:01 Temperature Pulse Rate 106 H 105 H Respiratory Rate 29 H 23 Blood Pressure 139/84 Pulse Oximetry 93 92 Oxygen Delivery Method Oxygen Flow Rate 12/04/22 00:01 12/04/22 00:15 12/04/22 01:15 Temperature Pulse Rate 104 H 100 H Respiratory Rate 21 28 H Blood Pressure Pulse Oximetry 92 93 Oxygen Delivery Method Nasal Cannula Oxygen Flow Rate 12/04/22 00:35 Temperature 97.7 F Pulse Rate 108 H Respiratory Rate 32 H Blood Pressure 149/89 H Pulse Oximetry 93 Oxygen Delivery Method Oxygen Flow Rate 3
--- NOTE | 2022-12-04 05:27 | PC.NURSE ---
Admit/Night Note-Patient brought to AC room 222 at 0035. Alert and oriented x3, short of breath with some difficulty conversing. SpO2 >90% on 3L NC, audible wheezes with faint exp wheezes auscultated, VSS, Zithromycin infusing. Skin moist, afebrile, denies pain except while coughing. RT nebs given which was effective, patient was able to doze with HOB elevated.
[2022-12-04] MEDS: ALBUTEROL/IPRATROPIUM 3 ML AMPUL INH ×5 (07:21→23:03)
[2022-12-04] MEDS: BUDESONIDE 0.5 MG/2 ML NEB INH ×2 (07:32→18:59)
--- NOTE | 2022-12-04 09:27 | CM.DANOTE ---
Initial DCP Assessment Note Pt is an 82 yo male, resident of [place], presents with SOB and dyspnea, admitted for further medical management of parainfluenza (+), suspected COPD exacerbation with viral illness Patient on home O2 r.t chronic COPD PCP: Dr Cole Payer: Michel SCOTT Reviewed chart, no H+P available for review at this time. Patient lives w/spouse in their RV. Patient's mobility is limited r/t to his resp status, poor activity tolerance. Patient gets around their RV but does not go out often CM team will plan to follow closely, patient may benefit from additional assessment of discharge needs as medical plan of care unfolds. May benefit from referral closer to [place] BETH Flower Discharge Planning/Care Management CM Discharge Assessment Start: 12/04/22 09:24 Freq: Status: Active Protocol: Document 12/04/22 09:25 NEDA (Rec: 12/04/22 09:27 [id number]) Discharge Planning Assessment Assigned Otr [employer] BETH Lange DPOA/Assigned Designee Name Cori Scott, spouse Contact Information [phone] Advance Directives? No History Provided By Patient,Significant Other, Medical Record Prior Living Arrangements RV Household Members spouse Type of transporation used prior to Relies on Others admit Independent with ADL's Yes: poor activity tolerance Is patient alert and oriented? Yes Needs Assistance With Meal Prep,Managing Medications ,Home Chores / Shopping Barriers to Discharge No Comment None identified at this time Discharge Plan Home Transportation Arrangement Spouse Additional Comment Will plan to follow for needs
[2022-12-04] MEDS: SODIUM CHLORIDE 0.9% FLUSH 10 ML IV ×2 (09:49→21:00)
--- NOTE | 2022-12-04 12:00 | P.HP_ITS ---
History of Present Illness History of Present Illness Date Patient Seen: 12/04/22 Time Patient Seen: 12:01 Date of Onset of Symptoms: 11/30/22 Chief complaint: sob/cough Narrative: This is a very pleasant 82-year-old male who is under the primary care of Dr. Andrade. He at baseline is on approximately 3 L of nasal cannula oxygen for his chronic severe COPD. He states that he developed fever and chills and cough intermittently productive approximately 4 days ago and it progressively worsened and he became progressively dyspneic to the point that he called EMS last night and O2 sat was 80% on 3 L 4 L of nasal cannula oxygen. He was brought to the ER where he was diagnosed with parainfluenza and chest x-ray showed a probable pneumonia. He was given IV Solu-Medrol and DuoNebs and had improvement in his condition and was admitted to the hospital for further treatment and diagnosis. Patient states that he is feeling much better today but still having significant wheeze and cough and feeling very exhausted. He is a long history of COPD and has been on chronic oxygen for this. He denies any other cardiac symptoms of chest pain or palpitations or lightheadedness or dizziness Past medical history: 1. COPD on chronic nasal cannula oxygen. He is on why wylexa, Spiriva, albuterol as needed 2. Distant history of tobacco abuse. He previously smoked 2 packs a day for many many years but quit smoking about 20 years ago. 3. Chronic heart failure with preserved ejection fraction. Is followed by Cardiology 4. Depression 5. Dyslipidemia 6. BPH 7. Obesity Past surgical history Tonsillectomy and adenoidectomy as a child Bilateral eye surgeries Health related behavior Distant history of tobacco abuse Does not use alcohol on a regular basis Is not active Does not use illicit street drugs Family history Father from alcohol abuse at age 54 Mom lived to Patient has 3 siblings unknown health history Social history Patient is and lives in [facility]. He has 4 children, 4 daughters. One lives in [place] and 3 live in [facility] Medical History COPD (chronic obstructive pulmonary disease) Social History marital status: household members: spouse lives independently: Yes Smoking Status: Former smoker Meds Home Medications and Allergies Home Medications Medication Instructions Recorded Confirmed Type nirmatrelvir 300 mg (150 mg See Rx Instructions PO .COMPLEX 11/03/21 Rx x2)-ritonavir 100 mg tablet,dose #15 tabs pack(EUA) (Paxlovid) Allergies Allergy/AdvReac Type Severity Reaction Status Date / Time No Known Drug Allergies Allergy Verified 11/03/21 18:01 Review of Systems Review of Systems Narrative: Twelve point review of systems is otherwise negative No chest pain No rashes No urinary symptoms Exam Vital Signs (past 8 hours): - 12/04/22 06:00 12/04/22 08:45 12/04/22 07:30 Temperature 98.2 F 97.6 F Pulse Rate 93 H 99 H 90 Respiratory Rate 31 H 22 24 Blood Pressure 139/81 147/79 H Pulse Oximetry 94 96 95 Oxygen Delivery Method Nasal Cannula Oxygen Flow Rate 3 3 3 12/04/22 10:57 Temperature Pulse Rate 92 H Respiratory Rate 22 Blood Pressure Pulse Oximetry 96 Oxygen Delivery Method Nasal Cannula Oxygen Flow Rate 3 Oxygen Delivery Method Nasal Cannula Oxygen Flow Rate 3 Narrative Exam Narrative: Patient is alert and oriented no apparent distress and a good historian. He appears pale and coughing frequently with audible wheezing but no pursed lip breathing or tripoding HEENT shows mucous membranes moist and pink without any lesions Neck: Supple without adenopathy or jugular venous distention or bruits or thyromegaly Chest: Diffuse inspiratory expiratory wheezes Cor regular rate and rhythm with distant S1-S2 Abdomen: Positive bowel sounds, obese, no hepatosplenomegaly, soft no guarding Extremities: No edema, pulses intact Neurologic exam nonfocal Objective Labs 12/03/22 20:05 12/03/22 20:05 Labs: Laboratory Results - last 24 hr 12/03/22 12/03/22 12/03/22 20:05 20:05 20:05 WBC 6.8 RBC 4.40 L Hgb 13.7 Hct 41.5 MCV 94.3 MCH 31.2 MCHC 33.1 RDW 14.3 Plt Count 219 Neut % (Auto) 71.9 Lymph % (Auto) 12.9 L [place] % (Auto) 13.8 Eos % (Auto) 0.9 L Baso % (Auto) 0.5 Neut # (Auto) 4900 Lymph # (Auto) 900 L [place] # (Auto) 900 Eos # (Auto) 100 Baso # (Auto) 0 Sodium 136 L Potassium 4.3 Chloride 100 Carbon Dioxide 28 BUN 16 Creatinine 1.05 Estimated GFR > 60 BUN/Creatinine Ratio 15.2 Glucose 117 H Lactate 1.5 Calcium 8.9 Total Bilirubin 0.4 AST 30 ALT 23 Alkaline Phosphatase 108 Total Creatine Kinase 172 H CK-MB (CK-2) TNP CK-MB (CK-2) Rel Index TNP Troponin I < 0.012 NT-Pro-B Natriuret Pep 373 Total Protein 7.8 Albumin 4.2 Globulin 3.6 Albumin/Globulin Ratio 1.2 Lipase 37 Procalcitonin 0.06 Chlamy pneumoniae PCR Adenovirus (PCR) B. pertussis DNA (PCR) B.parapertussis DNA PCR Coronavirus OC43 (PCR) Coronavirus HKU1 (PCR) Coronavirus 229E (PCR) SARS-CoV-2 (PCR) Coronavirus NL63 (PCR) Human Metapneumovir PCR Influenza Type A (PCR) Influenza Type B (PCR) M. pneumoniae (PCR) Parainfluenza 1 (PCR) Parainfluenza 2 (PCR) Parainfluenza 3 (PCR) Parainfluenza 4 (PCR) RSV (PCR) Entero/Rhino (PCR) 12/03/22 20:05 WBC RBC Hgb Hct MCV MCH MCHC RDW Plt Count Neut % (Auto) Lymph % (Auto) [place] % (Auto) Eos % (Auto) Baso % (Auto) Neut # (Auto) Lymph # (Auto) [place] # (Auto) Eos # (Auto) Baso # (Auto) Sodium Potassium Chloride Carbon Dioxide BUN Creatinine Estimated GFR BUN/Creatinine Ratio Glucose Lactate Calcium Total Bilirubin AST ALT Alkaline Phosphatase Total Creatine Kinase CK-MB (CK-2) CK-MB (CK-2) Rel Index Troponin I NT-Pro-B Natriuret Pep Total Protein Albumin Globulin Albumin/Globulin Ratio Lipase Procalcitonin Chlamy pneumoniae PCR Not detected Adenovirus (PCR) Not detected B. pertussis DNA (PCR) Not detected B.parapertussis DNA PCR Not detected Coronavirus OC43 (PCR) Not detected Coronavirus HKU1 (PCR) Not detected Coronavirus 229E (PCR) Not detected SARS-CoV-2 (PCR) Not detected Coronavirus NL63 (PCR) Not detected Human Metapneumovir PCR Not detected Influenza Type A (PCR) Not detected Influenza Type B (PCR) Not detected M. pneumoniae (PCR) Not detected Parainfluenza 1 (PCR) Not detected Parainfluenza 2 (PCR) Not detected Parainfluenza 3 (PCR) Not detected Parainfluenza 4 (PCR) Detected H RSV (PCR) Not detected Entero/Rhino (PCR) Not detected Assessment & Plan Assessment & Plan narrative: 82-year-old male with parainfluenza, possible bacterial secondary infection with underlying chronic severe COPD requiring nasal cannula oxygen Assessment 1. Hypoxemia secondary to parainfluenza, pneumonia, COPD Plan: Will consult respiratory therapy. Will do pulmonary toilet. Will continue equivalent of why Hellen and Spiriva. Will continue Solu-Medrol 60 mg IV Q 8 hours. Patient seems to be improving. Will continue with IV antibiotics, ceftriaxone and azithromycin. Will continue with supplemental oxygen. Assessment 2. BPH Plan: Will continue outpatient Flomax Assessment 3. High-frequency preserved ejection fraction. Plan: I do not think this is contributing to his current symptomatology. I reviewed the note from cardiology and at this point we will continue on his outpatient medications and be careful not to fluid overload him. Assessment 4. Dyslipidemia Plan: Continue outpatient statin Code status is DNI but he does want initial trial of CPR. Anticipate discharge to home in the next 1-2 days. DVT prophylaxis Lovenox GI prophylaxis Protonix Time spent with patient 75 minutes discussing with physician, nursing meeting with patient, reviewing clinic chart and current diagnostics and meeting with patient formulating a plan and documentation. Quality VTE Deep Vein Thrombosis/Pulmonary Embolism Present on Admission: No
[2022-12-04] MEDS: FLUoxetine 20 MG CAPSULE 40 MG PO (12:53)
[2022-12-04] MEDS: LORATADINE 10 MG TABLET PO (16:26)
[2022-12-04] MEDS: BENZOCAINE/MENTHOL 1 LOZ PKT 1 EACH PO (16:26)
--- NOTE | 2022-12-04 16:30 | CM.DPNOTE ---
Discharge Planning Note: Stella CAMPOS performed assessment today based on chart review. This DCP met with patient and introduced self and role. He lives with spouse who is somewhat physically impaired in a 30 foot RV in [facility] year round. He has not had Home Health in the past. Described how HH RN/PT could be helpful for him. He is a bit resistant. Plan: Revisit need for HH and patient's willingness to accept. Diana Edwards RN/DCP
[2022-12-04] MEDS: TRAZODONE 50 MG TABLET PO (20:58)
[2022-12-05] VITALS (9 sets, daily range): BP systolic 121–161; BP diastolic 82–83; PULSE 74–94; RESP 18–30; TEMP 36.2–36.8; O2SAT 91–95
[2022-12-05 05:49] LABS: Add Manual Diff / Slide Review NO; Basophils Absolute Auto 0 /uL (0-100); Eosinophils Absolute Auto 0 /uL (0-450); Hematocrit 38.8 % (41-53); Hemoglobin 12.9 g/dL (13.5-17.5); Lymphocytes Absolute Auto 700 /uL (1100-4500); Mean Corpuscular HGB Conc 33.3 % (30-36); Mean Corpuscular Hemoglobin 31.3 PG (26-34); Mean Corpuscular Volume 94.2 fL (80-100); Monocytes Absolute Auto 500 /uL (0-900); Monocytes Percent Auto 6.4 % (3-14); Neutrophils Absolute Auto 7100 /uL (1500-7000); Neutrophils Percent Auto 85.6 % (50-75); Platelet Count 220 X10^3/uL (150-400); Red Blood Cell Count 4.12 X10^6/uL (4.5-5.9); Red Cell Distribution Width 14.3 % (11.6-14.8); White Blood Cell Count 8.3 X10^3/uL (4.5-11.0)
[2022-12-05 06:03] LABS: BUN Creatinine Ratio 24.1 (6-22); Blood Urea Nitrogen 27 mg/dL (9-20); Calcium 9.5 mg/dL (8.4-10.2); Carbon Dioxide 34 mmol/L (22-32); Chloride 99 mmol/L (98-107); Estimated Glomerular Filt Rate > 60 mL/min (>60); Glucose 147 mg/dL (80-110); HEMOLYSIS < 15 (0-50); Potassium 4.9 mmol/L (3.4-5.1); Sodium 136 mmol/L (137-145)
[2022-12-05] MEDS: BENZOCAINE/MENTHOL 1 LOZ PKT 1 EACH PO ×2 (06:22→21:42)
[2022-12-05] MEDS: PANTOPRAZOLE DR 20 MG TABLET PO (06:22)
[2022-12-05] MEDS: BUDESONIDE 0.5 MG/2 ML NEB INH ×2 (08:42→18:18)
[2022-12-05] MEDS: ALBUTEROL/IPRATROPIUM 3 ML AMPUL INH ×5 (08:42→23:37)
[2022-12-05] MEDS: SODIUM CHLORIDE 0.9% FLUSH 10 ML IV ×2 (08:43→21:30)
[2022-12-05] MEDS: ENOXAPARIN 40 MG/0.4 ML SYRINGE SUBCUT (08:43)
[2022-12-05] MEDS: FUROSEMIDE 40 MG TABLET PO (08:43)
[2022-12-05] MEDS: FLUoxetine 20 MG CAPSULE 40 MG PO (08:43)
[2022-12-05] MEDS: DOCUSATE 100 MG CAPSULE PO (08:43)
--- NOTE | 2022-12-05 09:47 | OT.IP.EVAL ---
Current Diagnoses Chronic obstructive pulmonary disease with (acute) exacerbation (12/03/22) Past Medical History (Last Reviewed 12/04/22 @ 12:01 by Abbi Wilburn MD) COPD (chronic obstructive pulmonary disease) Occupational Therapy Inpatient Evaluation/Re-Eval M1 PT/OT-IP Prior Functional Status Start: 12/05/22 12:19 Freq: NEEDED Status: Active Protocol: Document 12/05/22 12:19 CGR (Rec: 12/05/22 12:30 CGR [id number]) Medical Review Prior Functional Status Medical History Reviewed Yes Communication Pt is an effective verbal communicator. Mobility and Gait Pt was IND at baseline but states that his mobility is limited d/t endurance. Activities of Daily Living and IADL's Pt was IND in all ADLs at baseline but states that using the shower in the RV is difficult. Social History Household Members spouse Living Arrangements RV Number of Floors (Floors) One Floor Number of Stairs To Enter/Railing? 4 steps up to deck with railing on L assending, level entry from deck into RV. Home Environment Standard Height Toilet,Walk in Shower Home Equipment Front Wheel Walker,Shower Seat without Backrest,Hand Held Shower Additional Social History Comment Pt has a 3 point cane and a broken power scoorter. M2 OT-IP Current Condition Start: 12/05/22 12:19 Freq: Status: Active Protocol: Document 12/05/22 12:19 CGR (Rec: 12/05/22 12:30 CGR [id number]) Occupational Therapy Current Condition Current Condition Evaluation Date 12/05/22 Treatment Diagnosis influenza, PNA, COPD Diagnosis Onset Date 12/03/22 M3 OT- IP Subjective and Pain Start: 12/05/22 12:19 Freq: Status: Active Protocol: Document 12/05/22 12:19 CGR (Rec: 12/05/22 12:30 CGR [id number]) OT- Subjective Occupational Therapy Visit Type Type Initial Evaluation Visit Start Time 09:19 Visit Stop Time 09:47 Total Visit Minutes 28 OT Pain Assessment Pain When Pain Assessed At Rest Pain Present Pain Present Denied Pain M4 OT- IP ADL's Start: 12/05/22 12:19 Freq: Status: Active Protocol: Document 12/05/22 12:19 CGR (Rec: 12/05/22 12:30 CGR [id number]) OT [id number] Comments OT Self-Feeding Comments not meal time OT ADL-Grooming General Evaluation Grooming Ability Standby Assistance Areas Needing Assistance Face Washing Comments OT Grooming Comments standing at sink OT ADL-Oral Care General Eval Oral Care Ability Standby Assistance Areas of Assistance Brushing Teeth Comments Oral Care Comments standing at sink OT ADL-Dressing Comments OT Dressing Comments not performed OT ADL-Toileting Comments OT Toileting Comments not performed OT ADL-Bathing Comments OT Bathing Comments not performed M5 OT- IP IADL's Start: 12/05/22 12:19 Freq: Status: Active Protocol: Document 12/05/22 12:19 CGR (Rec: 12/05/22 12:30 CGR [id number]) OT-Instrumental Activities of Daily Living Deficits IADL Deficits Identified No Deficits Home Safety Awareness Awareness of Need for Assistance at Home Good Awareness Ability to Problem Solve Emergency Able to Problem Solve Situations Medication Management Medication Management No Deficits Identified Money Management Money Management No Deficits Identified Meal Preparation Meal Preparation Caregiver Provides Assist Umbrella Tipper Machine Umbrella Tipper Machine Caregiver Provides Assist Driving Driving Comments 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 M6 OT- IP Functional Cognition Start: 12/05/22 12:19 Freq: Status: Active Protocol: Document 12/05/22 12:19 CGR (Rec: 12/05/22 12:30 CGR [id number]) Cognitive Factors Limiting Selfcare Function Cognitive Ability Level of Alertness Alert Patient Orientation Name,Age,Birthday,Month,Date, Year,Day of Week,Place, Situation Attention Span Ability Capable of Focused Attention, Capable of Sustained Attention Ability to Follow Commands Able to Follow Multi-Step Commands OT- Vision and Hearing OT- Hearing Assessment OT- Hearing Assessment WFL OT- Vision Assessment Visual Acuity Glasses All The Time Visual Attentiveness WFL Occular Pursuits WFL Visual Convergence WFL Vision Assessment Comments Pt wears bifocals M7 OT- IP Mobility and Balance Start: 12/05/22 12:19 Freq: Status: Active Protocol: Document 12/05/22 12:19 CGR (Rec: 12/05/22 12:30 CGR [id number]) OT- Bed Mobility Assessment Supine to Sit Supine to Sit Assist Independent Scooting Scooting to Edge of Bed Independent OT-Transfer Assessment Sit to and From Stand Sit to and from Stand Standby Assistance Transfers Transfer Ability Standby Assistance Technique Transfer Destination Bed,Chair Transfer Technique Stand Step Pivot Devices Transfer Assistive Devices Gait Belt,Front Wheeled Walker OT- Balance Assessment Sitting Balance and Reactions Static Sitting Balance Ability Good Dynamic Sitting Balance Ability Good M8 OT- IP Objective Assessments Start: 12/05/22 12:19 Freq: Status: Active Protocol: Document 12/05/22 12:19 CGR (Rec: 12/05/22 12:30 CGR [id number]) OT Gross Range of Motion Upper Extremity Range of Motion Assessment Within Functional Limits OT Strength Upper Extremity Strength Assessment Within Functional Limits Comments Strength Comments / OT- Coordination Assessment Upper Extremity Finger to Nose Test Within Functional Limits Finger Tapping Test Within Functional Limits OT-Muscle Tone Assessment Muscle Tone WNL Yes OT Sensation Assessment Edema Edema Absent M9 OT- IP Assessment and Plan Start: 12/05/22 12:19 Freq: Status: Active Protocol: Document 12/05/22 12:19 CGR (Rec: 12/05/22 12:30 CGR [id number]) OT Summary Assessment and Plan Potential Rehabilitation Potential Good Analytic Complexity at Evaluation Low Summary OT Impairments Functional Mobility,Dressing, Toileting,Bathing,Toilet Transfers,Shower Transfers, Activity Tolerance Progress Towards Goals Progressing Toward Goals Assessment Summary Pt presents as a low complexity evaluation s/p admit for influenza, PNA, COPD . Pt is doing well but will benefit from some training for LB dressing, bathing, and energy conservation. Recommend d/c home with family support. Goals Dressing Goal Independent,Radiology Physician Assistant,Sock Aid Toileting Goal Independent Bathing Goal Independent Toilet Transfer Goal Independent Shower Transfer Goal Independent Days to Meet Goals 2 Frequency of Treatment Frequency Of Treatment Once a Day Treatment Plan OT Treatment Plan ADL Training,Functional Mobility,Patient/Family Education,Discharge Planning Discharge Recommendations OT Discharge Recommendations Home with Assistance Transportation Needs at Discharge Private Vehicle
[2022-12-05] MEDS: cefTRIAXone 2,000 MG in SODIUM CHLORIDE 0.9% 100 ML 200 MG IV (10:23)
[2022-12-05] MEDS: AZITHROMYCIN 500 MG in DEXTROSE 5% IN WATER 250 ML 250 MG IV (11:14)
--- NOTE | 2022-12-05 14:45 | PT.IIE ---
Current Diagnoses Chronic obstructive pulmonary disease with (acute) exacerbation (12/03/22) Medical History (Last Reviewed 12/04/22 @ 12:01 by Abbi Wilburn MD) COPD (chronic obstructive pulmonary disease) Physical Therapy Inpatient Evaluation/Re-Eval M1 PT/OT-IP Prior Functional Status Start: 12/05/22 11:03 Freq: NEEDED Status: Active Protocol: Document 12/05/22 14:13 (Rec: 12/05/22 15:24 [id number]) Medical Review Prior Functional Status Medical History Reviewed Yes Communication Pt is an effective verbal communicator. Mobility and Gait Pt was IND at baseline but states that his mobility is limited d/t endurance. Activities of Daily Living and IADL's Pt was IND in all ADLs at baseline but states that using the shower in the RV is difficult. Social History Household Members spouse Living Arrangements RV Number of Floors (Floors) One Floor Number of Stairs To Enter/Railing? 4 steps up to deck with railing on L assending, level entry from deck into RV. Home Environment Standard Height Toilet,Walk in Shower Home Equipment Front Wheel Walker,Shower Seat without Backrest,Hand Held Shower Employment Status Retired Additional Social History Comment Pt has a 3 point cane, FWW, and a broken power scoorter. M1 PT/OT-IP Prior Functional Status Start: 12/05/22 12:19 Freq: NEEDED Status: Active Protocol: Document 12/05/22 14:13 (Rec: 12/05/22 15:24 [id number]) Medical Review Prior Functional Status Medical History Reviewed Yes Communication Pt is an effective verbal communicator. Mobility and Gait Pt was IND at baseline but states that his mobility is limited d/t endurance. Activities of Daily Living and IADL's Pt was IND in all ADLs at baseline but states that using the shower in the RV is difficult. Social History Household Members spouse Living Arrangements RV Number of Floors (Floors) One Floor Number of Stairs To Enter/Railing? 4 steps up to deck with railing on L assending, level entry from deck into RV. Home Environment Standard Height Toilet,Walk in Shower Home Equipment Front Wheel Walker,Shower Seat without Backrest,Hand Held Shower Employment Status Retired Additional Social History Comment Pt has a 3 point cane, FWW, and a broken power scoorter. M2 PT-IP Current Condition Start: 12/05/22 11:03 Freq: NEEDED Status: Active Protocol: Document 12/05/22 14:13 (Rec: 12/05/22 15:24 [id number]) Physical Therapy Current Condition Current Condition Evaluation Date 12/05/22 M3 PT-IP Subjective Start: 12/05/22 11:03 Freq: NEEDED Status: Active Protocol: Document 12/05/22 14:13 (Rec: 12/05/22 15:24 [id number]) Subjective Physical Therapy Visit Type Type Initial Evaluation Visit Start Time 14:13 Visit Stop Time 02:45 Total Visit Minutes 32 Physical Therapy Visit Comments Patient Comments Pt says he has not had as many naps today as he did the previous day. M4 PT-IP Mobility and Gait Start: 12/05/22 11:03 Freq: NEEDED Status: Active Protocol: Document 12/05/22 14:13 (Rec: 12/05/22 15:24 [id number]) PT-Transfer Assessment Sit to and From Stand Sit to and from Stand Standby Assistance Equipment Transfer Assistive Device Gait Belt,Front Wheeled Walker Orthotic/Prosthetic Devices or Brace: No Transfers Transfer Destination Chair Transfer Technique Stand Step Pivot Transfer Ability Level of Assist Standby Assistance Comments Mobility Comments Pt was sitting on side of the bed when encountered by PT. Was able to sit to stand with walker with no verbal cueing. Pt then was able to get up, walk to edge of bed and sit on the edge without an AD. Gait Assessment Gait Gait Assistance Required: Standby Assistance Able to Maintain Weight Bearing Status Yes During Gait Assistive Devices Assistive Device Gait Belt,Front Wheeled Walker Gait Deviations General Gait Pattern Within Normal Limits Factors Limiting Gait Function Factors Limiting Gait Function Respiratory Distress Comments Gait Comments MMT were performed, SpO2 following was 95; then pt was asked to get up and walk. Following movement SpO2 dropped to 80. Pt sat in in chair and waited for SpO2 to increase to 94 before resuming . Functional Assessments Functional Tests 5 Times Sit to Stand 5 in 25 sec 30 Seconds Sit to Stand Test 6 in 30 sec M5 PT-IP Objective Assessments Start: 12/05/22 11:03 Freq: NEEDED Status: Active Protocol: Document 12/05/22 14:13 (Rec: 12/05/22 15:24 [id number]) Orientation Orientation/Cognition Level of Alertness Alert Comments WNL Gross Range of Motion Upper Extremity ROM Assessment Within Functional Limits Lower Extremity ROM Assessment Within Functional Limits Strength Lower Extremity Strength Assessment Within Functional Limits Comments Strength Comments Pt appeared to have SOB following MMT. Sensation Assessment Sensation Gross Sensation WNL M7 PT-IP Assessment and Plan Start: 12/05/22 11:03 Freq: NEEDED Status: Active Protocol: Document 12/05/22 14:13 (Rec: 12/05/22 15:24 [id number]) PT Summary Assessment and Plan Potential Rehabilitation Potential Good Status of Condition at Evaluation Evolving Summary Impairments Strength,Activity Tolerance Assessment Summary Pt was sitting on side of bed when encountered by PT. They had just woken up from a nap. He lives in an RV with his and doesn't get out much. There are 4 steps with an outside rail that lead up to a 4ft by 4ft porch that is level with the RV door. Pt notes that he does not use AD in the RV, he furniture surfs. The bathroom has a low toilet that is manageable; shower is small cramped space that is step in. He can drive, but his does most of the driving. He does have portable oxygen. When walking his small dogs he typically uses a motorized scooter that is currently not working. He does have a cane and FWW available to him. Upon encounter pt was able to get up and moving independtly but was quick to fatigue. He got up independently with no verbal cueing and walked around the bed with a FWW. Pt SpO2 dropped from 95-80. Pt then sat in chair and waited for SpO2 to increase to 94. 5x S-S was performed as well as a 30 sec S-S. Following testing pt got up independently and walked to the edge of the bed without an AD. Acute PT will continue to address pt's activity tolerance. PT recommends discharge to home when medically stable. Goals Gait Goal Independent,Cane,Front Wheel Walker Gait Distance 75ft Other Goals 1. Transfer and gait goals to be met with LRAD 2. Able to go up and down 4 steps with a single rail SpO2 in target range. Frequency of Treatment Frequency Of Treatment Once a Day Treatment Plan Physical Therapy Treatment Plan Transfer Training,Gait Training,Therapeutic Exercise, Balance Retraining,Discharge Planning Other Recommendations and Next Treatment assess stairs and progress Focus gait distance. Precautions Other Precautions monitor SpO2 Recommendations To Nursing Amount of Assist Needed Standby Assistance Discharge Recommendations PT Discharge Recommendations Home,Home with Assistance Transportation Needs at Discharge Private Vehicle Treatment was provided by RADHA Schmitt and supervised by Tierney Kothari, PT. I personally reviewed this note and agree with its contents.
--- NOTE | 2022-12-05 15:54 | CM.DPC ---
DCP Continued: WIND TURBINE PERFORMANCE ENGINEER reviewed EMR. Dr. Cole reported patient was interested in rehab at this time. Dr. Cole placed order for PT and OT eval for potential SNF or HH. From OT note and PT verbally, their recommendation at this time is home with assistance. They will work with him again tomorrow and continue to update this staff as needed. OT/PT claim he is near his baseline at this time. Patient uses home O2 at baseline. WIND TURBINE PERFORMANCE ENGINEER texted this findings to Dr. Cole. WIND TURBINE PERFORMANCE ENGINEER unable to meet with patient today. WIND TURBINE PERFORMANCE ENGINEER will follow up with patient tomorrow for further d/c planning. Plan: home when medically stable with outpatient follow up. CM team will continue to follow with needs. BETH Narvaez
--- NOTE | 2022-12-05 17:21 | PM.PN.1 ---
Subjective Subjective Interval history: Chief complaint shortness of breath feeling a bit better this morning with the steroids on board 1 dose of antibiotics will continue those today I note white blood cells are technically normal but there is neutrophilia evident encourage incentive spirometry use he lives in a trailer his is quite sick at the moment will plan possibly on a discharge home with home health tomorrow Exam Vital Signs (past 8 hours): - 12/05/22 11:36 12/05/22 12:00 12/05/22 15:40 Temperature 98.1 F Pulse Rate 88 Respiratory Rate 18 Blood Pressure 144/82 H Pulse Oximetry 91 93 92 Oxygen Delivery Method Nasal Cannula Nasal Cannula Oxygen Flow Rate 3 3 3 Oxygen Delivery Method Nasal Cannula Oxygen Flow Rate 3 Narrative Exam Narrative: Obese elderly in bed receiving breathing treatment Cardio Other: Mildly tachycardic rate S1-S2 GI Other: Normal bowel sounds Neuro General: patient alert, patient awake, patient oriented x3, tone normal and moves all extremities Extrem General: full ROM and no pedal edema Objective Labs 12/05/22 04:40 12/05/22 04:40 Labs: Laboratory Results - last 24 hr 12/05/22 12/05/22 04:40 04:40 WBC 8.3 RBC 4.12 L Hgb 12.9 L Hct 38.8 L MCV 94.2 MCH 31.3 MCHC 33.3 RDW 14.3 Plt Count 220 Neut % (Auto) 85.6 H Lymph % (Auto) 8.0 L Wharton % (Auto) 6.4 Eos % (Auto) 0.0 L Baso % (Auto) 0.0 Neut # (Auto) 7100 H Lymph # (Auto) 700 L Wharton # (Auto) 500 Eos # (Auto) 0 Baso # (Auto) 0 Sodium 136 L Potassium 4.9 Chloride 99 Carbon Dioxide 34 H BUN 27 H Creatinine 1.12 Estimated GFR > 60 BUN/Creatinine Ratio 24.1 H Glucose 147 H Calcium 9.5 PFSH Medical History COPD (chronic obstructive pulmonary disease) Social History marital status: household members: spouse lives independently: Yes Smoking Status: Former smoker Assessment & Plan Assessment & Plan narrative: Assessment & Plan narrative: 82-year-old male with parainfluenza, possible bacterial secondary infection with underlying chronic severe COPD requiring 3L O2 via NC at baseline #Acute on chronic hypoxemia secondary to parainfluenza, pneumonia, COPD Continue antibiotics with IV steroids and respiratory therapy consult continue pulmonary toilet and duo nebs Some improvement noted today I want him to get 3 days of IV antibiotics #BPH stable continue outpatient Flomax #Heart failure with preserved ejection fraction. agree does not seem to be connected to current issues, continue on his outpatient medications and be careful not to fluid overload him. #Dyslipidemia stable continue outpatient statin Code status is DNI but he does want initial trial of CPR. Anticipate discharge to home in the next 1-2 days. DVT prophylaxis Lovenox GI prophylaxis Protonix Time spent 45 min Quality VTE Deep Vein Thrombosis/Pulmonary Embolism Present on Admission: No
[2022-12-05] MEDS: TAMSULOSIN 0.4 MG CAPSULE PO (20:30)
[2022-12-05] MEDS: TRAZODONE 50 MG TABLET PO (20:30)
[2022-12-05] MEDS: LORATADINE 10 MG TABLET PO (21:42)
[2022-12-06 05:19] VITALS: BP 114/86; PULSE 72; RESP 19; TEMP 36.2; O2SAT 93
[2022-12-06] MEDS: PANTOPRAZOLE DR 20 MG TABLET PO (05:23)
[2022-12-06 05:39] LABS: Add Manual Diff / Slide Review NO; Basophils Absolute Auto 0 /uL (0-100); Basophils Percent Auto 0.1 % (0-2); Eosinophils Absolute Auto 0 /uL (0-450); Hematocrit 38.9 % (41-53); Hemoglobin 12.8 g/dL (13.5-17.5); Lymphocytes Absolute Auto 800 /uL (1100-4500); Lymphocytes Percent Auto 7.6 % (25-40); Mean Corpuscular HGB Conc 33.1 % (30-36); Mean Corpuscular Volume 93.8 fL (80-100); Monocytes Absolute Auto 300 /uL (0-900); Monocytes Percent Auto 3.2 % (3-14); Neutrophils Absolute Auto 9200 /uL (1500-7000); Neutrophils Percent Auto 89.1 % (50-75); Platelet Count 237 X10^3/uL (150-400); Red Blood Cell Count 4.14 X10^6/uL (4.5-5.9); Red Cell Distribution Width 14.2 % (11.6-14.8); White Blood Cell Count 10.3 X10^3/uL (4.5-11.0)
[2022-12-06 05:52] LABS: Alanine Aminotransferase 28 IU/L (<50); Albumin 3.7 g/dL (3.5-5.0); Albumin Globulin Ratio 1.2 (1.0-2.8); Alkaline Phosphatase 75 U/L (38-126); Aspartate Aminotransferase 37 IU/L (17-59); BUN Creatinine Ratio 27.4 (6-22); Bilirubin Total 0.2 mg/dL (0.2-1.3); Blood Urea Nitrogen 29 mg/dL (9-20); Calcium 9.1 mg/dL (8.4-10.2); Carbon Dioxide 33 mmol/L (22-32); Chloride 98 mmol/L (98-107); Estimated Glomerular Filt Rate > 60 mL/min (>60); Globulin 3.1 g/dL (1.7-4.1); Glucose 142 mg/dL (80-110); HEMOLYSIS < 15 (0-50); Potassium 4.4 mmol/L (3.4-5.1); Sodium 134 mmol/L (137-145); Total Protein 6.8 g/dL (6.3-8.2)
[2022-12-06] MEDS: ALBUTEROL/IPRATROPIUM 3 ML AMPUL INH ×2 (08:31→11:20)
[2022-12-06] MEDS: BUDESONIDE 0.5 MG/2 ML NEB INH (08:31)
--- NOTE | 2022-12-06 08:34 | PM.DS.1 ---
History of Present Illness History of Present Illness Chief complaint: sob/cough Narrative: This is a very pleasant 82-year-old male who is under the primary care of Dr. Andrade. He at baseline is on approximately 3 L of nasal cannula oxygen for his chronic severe COPD. He states that he developed fever and chills and cough intermittently productive approximately 4 days ago and it progressively worsened and he became progressively dyspneic to the point that he called EMS last night and O2 sat was 80% on 3 L 4 L of nasal cannula oxygen. He was brought to the ER where he was diagnosed with parainfluenza and chest x-ray showed a probable pneumonia. He was given IV Solu-Medrol and DuoNebs and had improvement in his condition and was admitted to the hospital for further treatment and diagnosis. Patient states that he is feeling much better today but still having significant wheeze and cough and feeling very exhausted. He is a long history of COPD and has been on chronic oxygen for this. He denies any other cardiac symptoms of chest pain or palpitations or lightheadedness or dizziness Past medical history: 1. COPD on chronic nasal cannula oxygen. He is on why wylexa, Spiriva, albuterol as needed 2. Distant history of tobacco abuse. He previously smoked 2 packs a day for many many years but quit smoking about 20 years ago. 3. Chronic heart failure with preserved ejection fraction. Is followed by Cardiology 4. Depression 5. Dyslipidemia 6. BPH 7. Obesity Past surgical history Tonsillectomy and adenoidectomy as a child Bilateral eye surgeries Health related behavior Distant history of tobacco abuse Does not use alcohol on a regular basis Is not active Does not use illicit street drugs Family history Father from alcohol abuse at age 54 Mom lived to Patient has 3 siblings unknown health history Social history Patient is and lives in [facility]. He has 4 children, 4 daughters. One lives in [place] and 3 live in [place] Discharge Providers Provider Date of admission: 12/03/22 23:35 Discharge Date: 12/06/22 Primary care physician: Oli Cole MD 145 12/09/22 Consults: 12/05/22 09:00 Consult to Occupational Therapy Evaluate & Treat Comment: Physician Instructions: Evaluate and treat Consult to Physical Therapy Evaluate & Treat Comment: Physician Instructions: Evaluate and Treat Discharge provider: Abbi Wilburn MD Summary Hospital Course Discharge Diagnosis: 1. COPD exacerbation 2. Parainfluenza virus infection 3. Community-acquired pneumonia 4. Hypoxemia respiratory failure improved 5. High-frequency preserved ejection fraction heart failure, stable 6. Anxiety 7. Hyperlipidemia Hospital Course: Patient admitted to the hospital with COPD exacerbation secondary to parainfluenza virus and suspected secondary bacterial infection. Patient continued to improve and was felt to be back at his baseline on day number 4 and was discharged home. He was discharged home on prednisone taper and Levaquin. He was discharged home with home health. He was discharged home on his same other medications and will follow up with Dr. Andrade at 1:45 a.m. on Monday. 40 minutes was spent with patient in discharged today. Status at Discharge Cognitive/behavioral status at discharge: oriented Functional status at discharge: uses cane/walker Overall status at discharge: patient is progressing back to baseline Exam Vital Signs (past 8 hours): - 12/06/22 05:19 Temperature 97.2 F L Pulse Rate 72 Respiratory Rate 19 Blood Pressure 114/86 Pulse Oximetry 93 Oxygen Flow Rate 3 Fraction of Inspired Oxygen 28 SaO2/FiO2 Ratio 332 Oxygen Delivery Method Nasal Cannula Oxygen Flow Rate 3 Narrative Exam Narrative: Alert and oriented x3 HEENT unremarkable Neck supple Chest: Still with and inspiratory and expiratory wheeze but markedly better. No rhonchi or crackles. Improved air exchange Cor: Regular rate and rhythm with distant S1-S2 Abdomen: Positive bowel sounds, soft, no hepatosplenomegaly Extremities: No edema Neurologic exam nonfocal Objective Labs 12/06/22 05:15 12/06/22 05:15 Labs: Laboratory Results - last 24 hr 12/06/22 12/06/22 05:15 05:15 WBC 10.3 RBC 4.14 L Hgb 12.8 L Hct 38.9 L MCV 93.8 MCH 31.0 MCHC 33.1 RDW 14.2 Plt Count 237 Neut % (Auto) 89.1 H Lymph % (Auto) 7.6 L Nolan % (Auto) 3.2 Eos % (Auto) 0.0 L Baso % (Auto) 0.1 Neut # (Auto) 9200 H Lymph # (Auto) 800 L Nolan # (Auto) 300 Eos # (Auto) 0 Baso # (Auto) 0 Sodium 134 L Potassium 4.4 Chloride 98 Carbon Dioxide 33 H BUN 29 H Creatinine 1.06 Estimated GFR > 60 BUN/Creatinine Ratio 27.4 H Glucose 142 H Calcium 9.1 Total Bilirubin 0.2 AST 37 ALT 28 Alkaline Phosphatase 75 Total Protein 6.8 Albumin 3.7 Globulin 3.1 Albumin/Globulin Ratio 1.2 [facility] Medical History COPD (chronic obstructive pulmonary disease) Social History marital status: household members: spouse lives independently: Yes Smoking Status: Former smoker Discharge Assessment & Plan Assessment and Plan Assessment: 82-year-old male with parainfluenza, possible bacterial secondary infection with underlying chronic severe COPD requiring nasal cannula oxygen Assessment 1.? Hypoxemia secondary to parainfluenza, pneumonia, COPD Plan: Patient continues to improve. I feel he is essentially back to his baseline. Will be discharged home on Levaquin 500 mg daily. He received his dose of azithromycin and ceftriaxone prior to discharge so he will start the Levaquin tomorrow. He will be placed on prednisone 60 mg daily for 3 days and then 40 mg daily and then further taper per Dr. Andrade. He will see Dr. Andrade on Monday at 1:45 p.m. he will continue his other same inhalers including Spiriva and the Y Hellen. Assessment 2.? BPH Plan: Will continue outpatient Flomax Assessment 3.? High-frequency preserved ejection fraction. Patient remained euvolemic without any symptoms or fluid overload Assessment 4. Dyslipidemia Plan: Continue outpatient statin Code status is DNI but he does want initial trial of CPR. DC home with home health DVT prophylaxis Lovenox GI prophylaxis Protonix Discharge Plan Discharge Plan Patient Disposition: Home Health Service Discharge orders & Medications Prescriptions: New prednisone 20 mg Tablet 60 mg PO DAILY Qty: 60 1RF Rx Instructions: 3 tablets daily for 2 days and then 2 tablets daily. Remainder of taper per Dr. Cole take with food levofloxacin 500 mg tablet 500 mg PO DAILY Qty: 7 0RF Continued simvastatin 20 mg tablet 20 mg PO ONCE HS albuterol sulfate 90 mcg/actuation HFA aerosol inhaler 90 mcg INHALATION Q4HR fluoxetine 40 mg capsule 40 mg PO BID trazodone 50 mg tablet 50 mg PO BEDTIME tamsulosin 0.4 mg capsule 0.4 mg PO BEDTIME fluticasone propion-salmeterol [Wixela Inhub] 500-50 mcg/dose blister with device 50 inh INHALATION BID Spiriva Respimat 2.5 mcg/actuation mist 2.5 mcg INHALATION DAILY furosemide 40 mg Tablet 40 mg PO QAM albuterol sulfate 90 mcg/actuation HFA aerosol inhaler 90 mcg INHALATION Q4H loratadine [Allergy Relief (loratadine)] 10 mg Tablet 10 mg PO DAILY aspirin 81 mg Capsule 81 mg PO DAILY Discontinued Paxlovid (EUA) 150 mg x 2- 100 mg tablet See Rx Instructions .ROUTE .COMPLEX Qty: 15 0RF Rx Instructions: take ONE 150 mg tablet of nirmatrelvir with ONE 100 mg tablet of ritonavir twice daily for 5 days Follow up/Referrals: Oli Cole MD [Primary Care Provider] - Diet/Activity/Treatments Diet: Diet as Tolerated Visit Report/Discharge Packet Stand Alone Forms: Patient Portal/API, Stroke Signs & Symptoms Discharge Data Primary Care Provider: Oli Cole Quality VTE Deep Vein Thrombosis/Pulmonary Embolism Present on Admission: No
[2022-12-06 08:36] VITALS: PULSE 70; RESP 20; O2SAT 94
[2022-12-06] MEDS: DOCUSATE 100 MG CAPSULE PO (08:39)
[2022-12-06] MEDS: ENOXAPARIN 40 MG/0.4 ML SYRINGE SUBCUT (08:39)
[2022-12-06] MEDS: predniSONE 20 MG TABLET 60 MG PO (08:39)
[2022-12-06] MEDS: cefTRIAXone 2,000 MG in SODIUM CHLORIDE 0.9% 100 ML 200 MG IV (08:39)
[2022-12-06] MEDS: FLUoxetine 20 MG CAPSULE 40 MG PO (08:39)
[2022-12-06] MEDS: TAMSULOSIN 0.4 MG CAPSULE PO (08:39)
[2022-12-06] MEDS: FUROSEMIDE 40 MG TABLET PO (08:39)
[2022-12-06] MEDS: SODIUM CHLORIDE 0.9% FLUSH 10 ML IV (08:40)
--- NOTE | 2022-12-06 09:15 | PT.IPTN ---
Current Diagnoses Chronic obstructive pulmonary disease with (acute) exacerbation (12/03/22) Physical Therapy Treatment Note M2 PT-IP Current Condition Start: 12/05/22 11:03 Freq: NEEDED Status: Active Protocol: Document 12/05/22 16:53 AW (Rec: 12/05/22 16:54 AW [id number]) Physical Therapy Current Condition Current Condition Treatment Diagnosis parainfluenza, impaired endurance M3 PT-IP Subjective Start: 12/05/22 11:03 Freq: NEEDED Status: Active Protocol: Document 12/06/22 09:51 TS (Rec: 12/06/22 10:08 TS [id number]) Subjective Physical Therapy Visit Type Type Treatment Note Visit Start Time 09:15 Visit Stop Time 09:44 Total Visit Minutes 29 Number of GOLD LEAF PRINTER Visits 1 Physical Therapy Visit Comments Patient Comments Pt reports feeling shaky, believes it is from the steroids he ahs been getting. Agreeable to PT. M4 PT-IP Mobility and Gait Start: 12/05/22 11:03 Freq: NEEDED Status: Active Protocol: Document 12/06/22 09:51 TS (Rec: 12/06/22 10:08 TS [id number]) PT-Bed Mobility Assessment Supine to Sit Supine to Sit Independent Scooting Scooting to Edge of Bed Independent PT-Transfer Assessment Sit to and From Stand Sit to and from Stand Standby Assistance Equipment Transfer Assistive Device None,Gait Belt Orthotic/Prosthetic Devices or Brace: No Comments Mobility Comments Pt found resting on 3L of o2 at 93%. He performed supine to sit and scooted to EOB Ind with BUE suppport. Sit to stand no AD SBA, pt unsteady initially in standing, balanced improved with increased standing duration. He ambulated in room SBA ~40 with no AD, managed o2 line on own, unsteady on feet with increased swaying, no LOB. He performed stairs x4 SBA with LUE on sink counter for support. Pt sat in chair, o2 86% on 3L after mobility, ~ 1min to recover to low 90's. Pt was left in chair with call light nearby, spouse in room, all needs met. Gait Assessment Gait Gait Assistance Required: Standby Assistance Distance (Feet) 40 Able to Maintain Weight Bearing Status Yes During Gait Assistive Devices Assistive Device None,Gait Belt Orthotic/Prosthetic Devices or Brace: No Factors Limiting Gait Function Factors Limiting Gait Function Respiratory Distress Comments Gait Comments See mobility comments. Stair Climbing Assessment Evaluation Level of Assist On Stairs Standby Assistance Devices Stair Climbing Assistive Devices Left Railing Technique/Endurance Stair Climbing Direction Ascend and Descend Stair Climbing Technique Step to Step Number of Steps Climbed 4 Comments Stair Climbing Comments See mobility comments. PT-Balance Assessment Sitting Balance and Reactions Static Sitting Balance Ability Good Dynamic Sitting Balance Ability Good Standing Balance and Reactions Static Standing Balance Ability Good Dynamic Standing Balance Ability Fair M5 PT-IP Objective Assessments Start: 12/05/22 11:03 Freq: NEEDED Status: Active Protocol: Document 12/05/22 14:13 JH (Rec: 12/05/22 15:24 JH [id number]) Orientation Orientation/Cognition Level of Alertness Alert Comments WNL Gross Range of Motion Upper Extremity ROM Assessment Within Functional Limits Lower Extremity ROM Assessment Within Functional Limits Strength Lower Extremity Strength Assessment Within Functional Limits Comments Strength Comments Pt appeared to have SOB following MMT. Sensation Assessment Sensation Gross Sensation WNL M7 PT-IP Assessment and Plan Start: 12/05/22 11:03 Freq: NEEDED Status: Active Protocol: Document 12/06/22 09:51 TS (Rec: 12/06/22 10:08 TS [id number]) PT Summary Assessment and Plan Potential Rehabilitation Potential Good Summary Impairments Strength,Activity Tolerance Progress Towards Goals Progressing Toward Goals Assessment Summary Pt is making progress with his mobility this session. He was resting on 3L of o2 at 93% prior to mobility. He progressed his gait to ~40' SBA with no AD, is unsteady on feet but no LOB. He performed stairs x4 SBA with LUE counter support. pt became SOB after mobility, required to sit in chair, Spo2 86% on 3L, ~1min to recover to low 90s. PT is recommending return home with assist from spouse. Pt appears to be clsoe to baseline and pt agreed except for the shakiness he believes from the steroids. Pt does not use AD at home and furniture surfs through RV. Goals Gait Goal Independent,Cane,Front Wheel Walker Gait Distance 75ft Other Goals 1. Transfer and gait goals to be met with LRAD 2. Able to go up and down 4 steps with a single rail SpO2 in target range. Frequency of Treatment Frequency Of Treatment Once a Day Treatment Plan Physical Therapy Treatment Plan Transfer Training,Gait Training,Therapeutic Exercise, Balance Retraining,Discharge Planning Other Recommendations and Next Treatment assess stairs and progress Focus gait distance. Precautions Other Precautions monitor SpO2 Recommendations To Nursing Amount of Assist Needed Standby Assistance Discharge Recommendations PT Discharge Recommendations Home,Home with Assistance Transportation Needs at Discharge Private Vehicle
[2022-12-06] MEDS: AZITHROMYCIN 500 MG in DEXTROSE 5% IN WATER 250 ML 250 MG IV (10:10)
--- NOTE | 2022-12-06 10:45 | OT.IP.TRT ---
Current Diagnoses Chronic obstructive pulmonary disease with (acute) exacerbation (12/03/22) Occupational Therapy Treatment Note M2 OT-IP Current Condition Start: 12/05/22 12:19 Freq: Status: Active Protocol: Document 12/05/22 12:19 CGR (Rec: 12/05/22 12:30 CGR [id number]) Occupational Therapy Current Condition Current Condition Evaluation Date 12/05/22 Treatment Diagnosis influenza, PNA, COPD Diagnosis Onset Date 12/03/22 M3 OT- IP Subjective and Pain Start: 12/05/22 12:19 Freq: Status: Active Protocol: Document 12/06/22 10:45 [facility] (Rec: 12/06/22 11:23 CCC [id number]) OT- Subjective Occupational Therapy Visit Type Type Treatment Note Visit Start Time 10:45 Visit Stop Time 11:09 Total Visit Minutes 24 Occupational Therapy Visit Comments Patient Comments Pt wanting to get back to bed. Patient/Caregiver Goals TO go home. OT Pain Assessment Pain When Pain Assessed At Rest Pain Present Pain Present Denied Pain M4 OT- IP ADL's Start: 12/05/22 12:19 Freq: Status: Active Protocol: Document 12/06/22 10:45 [facility] (Rec: 12/06/22 11:23 [facility] [id number]) OT [id number] Comments OT Self-Feeding Comments not meal time OT ADL-Grooming Comments OT Grooming Comments Not performed. OT ADL-Oral Care Comments Oral Care Comments Not performed. OT ADL-Dressing General Eval Lower Body Dressing Ability Standby Assistance Comments OT Dressing Comments Pt states had a sock aid before that he did not like. Able to try use of sock aid and pt states would like for his to get him one again from [employer]. OT ADL-Toileting Comments OT Toileting Comments not performed OT ADL-Bathing Comments OT Bathing Comments not performed, pt on IV at the time. Pt states his biggest issue for ADL's in the small shower at home. Suggested pt to have OT HH work on showering goal with him and also would benefit from having a bath aid at this time. M5 OT- IP IADL's Start: 12/05/22 12:19 Freq: Status: Active Protocol: Document 12/05/22 12:19 CGR (Rec: 12/05/22 12:30 CGR [id number]) OT-Instrumental Activities of Daily Living Deficits IADL Deficits Identified No Deficits Home Safety Awareness Awareness of Need for Assistance at Home Good Awareness Ability to Problem Solve Emergency Able to Problem Solve Situations Medication Management Medication Management No Deficits Identified Money Management Money Management No Deficits Identified Meal Preparation Meal Preparation Caregiver Provides Assist Engineering Surveyor Engineering Surveyor Caregiver Provides Assist Driving Driving Comments 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 M6 OT- IP Functional Cognition Start: 12/05/22 12:19 Freq: Status: Active Protocol: Document 12/06/22 10:45 [facility] (Rec: 12/06/22 11:23 [facility] [id number]) Cognitive Factors Limiting Selfcare Function Cognitive Comments Cognitive Assessment Comments Pt needing encouragement initiate task and looks to his often to answer questions. M7 OT- IP Mobility and Balance Start: 12/05/22 12:19 Freq: Status: Active Protocol: Document 12/06/22 10:45 [facility] (Rec: 12/06/22 11:23 [facility] [id number]) OT- Bed Mobility Assessment Sit to Supine Sit to Supine Assist Independent OT-Transfer Assessment Sit to and From Stand Sit to and from Stand Independent Transfers Transfer Ability Standby Assistance Technique Transfer Destination Bed,Chair Devices Transfer Assistive Devices None Comments Mobility Comments Pt able to get back onto bed with assist for tubing management needs. Suggested pt to get a 4ww so able to use it to sit to take rest breaks and also to help hold his O2 tank. OT- Balance Assessment Sitting Balance and Reactions Static Sitting Balance Ability Good Dynamic Sitting Balance Ability Good Standing Balance and Reactions Static Standing Balance Ability Good Dynamic Standing Balance Ability Fair M8 OT- IP Objective Assessments Start: 12/05/22 12:19 Freq: Status: Active Protocol: Document 12/05/22 12:19 CGR (Rec: 12/05/22 12:30 CGR [id number]) OT Gross Range of Motion Upper Extremity Range of Motion Assessment Within Functional Limits OT Strength Upper Extremity Strength Assessment Within Functional Limits Comments Strength Comments 5/5 OT- Coordination Assessment Upper Extremity Finger to Nose Test Within Functional Limits Finger Tapping Test Within Functional Limits OT-Muscle Tone Assessment Muscle Tone WNL Yes OT Sensation Assessment Edema Edema Absent M9 OT- IP Assessment and Plan Start: 12/05/22 12:19 Freq: Status: Active Protocol: Document 12/06/22 10:45 [facility] (Rec: 12/06/22 11:23 [facility] [id number]) OT Summary Assessment and Plan Potential Rehabilitation Potential Good Analytic Complexity at Evaluation Low Summary OT Impairments Functional Mobility,Dressing, Toileting,Bathing,Toilet Transfers,Shower Transfers, Activity Tolerance Progress Towards Goals Progressing Toward Goals Assessment Summary ABle to go over energy conservation strategies, suggestion sock aid and 4ww as pt states could go to [employer] to get items for the pt. Pt has a small RV shower and has difficulty with showers and would benefit from a bath aid and OT to work on independence for showering needs. Pt to go home with assist, home health. Goals Dressing Goal Independent,Environmental Technology Professor,Sock Aid Toileting Goal Independent Bathing Goal Independent Toilet Transfer Goal Independent Shower Transfer Goal Independent Days to Meet Goals 1 Frequency of Treatment Frequency Of Treatment Once a Day Treatment Plan OT Treatment Plan ADL Training,Functional Mobility,Patient/Family Education,Discharge Planning Discharge Recommendations OT Discharge Recommendations Home with Assistance,Home Health Home Equipment Needs 4ww, sock aid Transportation Needs at Discharge Private Vehicle
--- NOTE | 2022-12-06 10:51 | CM.DPC ---
DCP Continued: CHIP BIN OPERATOR reviewed EMR. From Dr. Wilburn, patient is okay to go home with HH. CHIP BIN OPERATOR entered room and introduced self and role. Patient was sitting up in bed and appeared A/Ox4. Patient was chatty and pleasant. Patient reports wanting HH. Patient expressed no verbal preference for HH agency. CHIP BIN OPERATOR called Cori ([phone]) per patient request to see if she had a preference for agency. expressed no preference for agency. asked for housing information due to them living in an . CHIP BIN OPERATOR directed to [facility] for more information regarding housing. appeared grateful for the information and will pursue. MUSA Briceno emailed the initial referral information to Melvi from [facility]. CHIP BIN OPERATOR completed Face to face and gave to MUSA Briceno to scan into chart. Melvi called MUSA Briceno and informed her that [facility] can accept patient. CHIP BIN OPERATOR brought patient a [facility] brochure. Patient informed CHIP BIN OPERATOR that his phone is lost and to have all scheduling go through his . present at this time and reported being ready for the phone call. CHIP BIN OPERATOR emailed Melvi to give her 's name and number. Melvi reported she understood. OT asked if a OFFICE MACHINES WIRER could be added to the HH order for a bath aid. CHIP BIN OPERATOR updated face to face. MUSA Briceno will inquire with [facility] to update the HH order. CM team will continue to follow. Plan: d/c home today in POV with spouse. [facility] will open for patient. CM team will continue to follow. BETH Narvaez
== END 2022-12-06 12:05 | disposition home health service (06) | DRG 865 ==
LOC: ED 23:22 → AC 23:36
PROVIDERS: Admitting Provider Family Medicine; Emergency Provider Emergency Medicine; PCP Family Medicine; Referring Provider Emergency Medicine; Visit Provider Family Medicine
DX: B34.8 Other viral infections of unspecified site (principal); J18.9 Pneumonia, unspecified organism; J96.91 Respiratory failure, unspecified with hypoxia; J44.1 Chronic obstructive pulmonary disease with (acute) exacerbation; I50.30 Unspecified diastolic (congestive) heart failure; N40.0 Benign prostatic hyperplasia without lower urinary tract symptoms; E78.5 Hyperlipidemia, unspecified; Z99.81 Dependence on supplemental oxygen; Z20.822 Contact with and (suspected) exposure to COVID-19; Z87.891 Personal history of nicotine dependence
CPT/HCPCS: 36415; 71045; 80048; 80053; 82550; 83605; 83690; 83880; 84145; 84484; 85025; 87040; 87633; 93005; 94640; 94760; 94762; 96365; 96375; 97116; 97162; 97165; 97530; 97535; 99285; J0696; J1650; J2920; J2930; J7613

== ENCOUNTER 2022-12-30 15:02 | Emergency (ER) | payer OTHER, SELFPAY ==
[2022-12-04 01:02] VITALS: BMI 364.8
[2022-12-30 15:27] VITALS: BP 169/83; PULSE 99; RESP 20; TEMP 36.8; O2SAT 93
--- NOTE | 2022-12-30 15:31 | ED_ITS ---
HPI - Epistaxis <Christiano Blount PA-C - Last Filed: 12/30/22 18:02> General Chief complaint: Nasal Problem Stated complaint: Nose bleed Time Seen by Provider: 12/30/22 15:30 History of Present Illness HPI Narrative: This is an 82-year-old male presents emergency department due to a nosebleed onset just prior to arrival. Patient states that he uses nasal cannula for his chronic COPD and that it dries out his mucosal membranes causing him do have occasional nosebleeds. Had 1 earlier this week. Takes a daily 81 mg aspirin but no other blood thinners. Denies any lightheadedness, chest pain, shortness of breath, or any other concerning signs or symptoms. Related Data Home Medications Medication Instructions Recorded Confirmed albuterol sulfate 90 mcg/actuation 90 mcg inhalation Q4H 12/04/22 12/04/22 aerosol inhaler albuterol sulfate 90 mcg/actuation 90 mcg inhalation Q4HR 12/04/22 12/04/22 aerosol inhaler aspirin 81 mg capsule 81 mg PO DAILY 12/04/22 12/04/22 fluoxetine 40 mg capsule 40 mg PO BID 12/04/22 12/04/22 fluticasone 500 mcg-salmeterol 50 50 inh inhalation BID 12/04/22 12/04/22 mcg/dose blistr powdr for inhalation (Wixela Inhub) furosemide 40 mg tablet 40 mg PO QAM 12/04/22 12/04/22 loratadine 10 mg tablet (Allergy 10 mg PO DAILY 12/04/22 12/04/22 Relief (loratadine)) simvastatin 20 mg tablet 20 mg PO ONCE HS 12/04/22 12/04/22 tamsulosin 0.4 mg capsule 0.4 mg PO BEDTIME 12/04/22 12/04/22 tiotropium bromide 2.5 2.5 mcg inhalation DAILY 12/04/22 12/04/22 mcg/actuation mist for inhalation (Spiriva Respimat) trazodone 50 mg tablet 50 mg PO BEDTIME 12/04/22 12/04/22 Previous Rx's Medication Instructions Recorded levofloxacin 500 mg tablet 500 mg PO DAILY #7 tabs 12/06/22 prednisone 20 mg tablet 60 mg PO DAILY #60 tabs 12/06/22 Allergies Allergy/AdvReac Type Severity Reaction Status Date / Time No Known Drug Allergies Allergy Verified 11/03/21 18:01 Review of Systems <Christiano Blount PA-C - Last Filed: 12/30/22 18:02> Review of Systems Narrative: GENERAL: Denies chills, fatigue, malaise, fever, sweats. HEENT: Nosebleed, Denies sinus pain, ear pain, sore throat, difficulty swallowing, dizziness. RESPIRATORY: Denies dyspnea, cough, wheezing, hemoptysis, sputum. CARDIOVASCULAR: Denies chest pain, palpitations, orthopnea, edema, GASTROINTESTINAL: Denies nausea, vomiting, abdominal pain, diarrhea, constipation, melena. : Denies dysuria, frequency, incontinence, hematuria, urinary retention. MUSCULOSKELETAL: denies weakness, joint pain, or bony pain SKIN: Denies rash, skin lesions, or other NEUROLOGIC: Denies weakness, headache, numbness, change in speech, confusion, seizures, incoordination. PSYCHIATRIC: No concerning psychosocial issues. 12 point review of systems is negative except for those stated above Patient History <Christiano Blount PA-C - Last Filed: 12/30/22 18:02> Medical History COPD (chronic obstructive pulmonary disease) Social History marital status: household members: spouse lives independently: Yes Smoking Status: Former smoker Smoking Status: Former smoker alcohol intake frequency: a few times a week Alcohol type: wine Substance Use Type: does not use Exam <MONSERRAT Cruz Last Filed: 12/30/22 18:02> Narrative Exam Narrative: GENERAL: Well-developed patient, in mild distress. HEAD: Atraumatic. Normocephalic. EYES: Pupils equal round and reactive. Extraocular motions intact. No scleral icterus. No injection or drainage. ENT: On exam patient's nose with no actively bleeding. No nasal septal hematomas noted. Throat without erythema, tonsillar hypertrophy or exudate. Airway patent. NECK: Trachea midline. Non tender CARDIOVASCULAR: Regular rate and rhythm without murmurs, gallops, or rubs. RESPIRATORY: Clear to auscultation. Breath sounds equal bilaterally. No wheezes, rales, or rhonchi. GASTROINTESTINAL: Abdomen soft, non-tender, nondistended. EXTREMITIES: No edema or joint tenderness. BACK: Nontender without deformity or crepitance. No flank tenderness. NEURO: AOx3. SKIN: No rash or erythema of visible areas Initial Vital Signs Initial Vital Signs: Vital Signs Temperature 98.2 F 12/30/22 15:27 Pulse Rate 99 H 12/30/22 15:27 Respiratory Rate 20 12/30/22 15:27 Blood Pressure 169/83 H 12/30/22 15:27 Pulse Oximetry 93 12/30/22 15:27 Oxygen Delivery Method Nasal Cannula 12/30/22 15:27 Oxygen Flow Rate 3 12/30/22 15:27 <Priyanka Frank DO - Last Filed: 12/31/22 07:24> Initial Vital Signs Initial Vital Signs: Vital Signs Temperature 98.2 F 12/30/22 15:27 Pulse Rate 99 H 12/30/22 15:27 Respiratory Rate 20 12/30/22 15:27 Blood Pressure 169/83 H 12/30/22 15:27 Pulse Oximetry 93 12/30/22 15:27 Oxygen Delivery Method Nasal Cannula 12/30/22 15:27 Oxygen Flow Rate 3 12/30/22 15:27 Course <Christiano Blount PA-C - Last Filed: 12/30/22 18:02> Orders Ordered: Discontinued Medications Oxymetazoline HCl (Oxymetazoline Nasal [place] 30 Ml) 2 sprays NASAL NOW ONE Stop: 12/30/22 15:42 Last Admin: 12/30/22 15:44 Dose: 2 sprays Documented By: RB Vital Signs Vital signs: Vital Signs - 8 hr 12/30/22 15:27 12/30/22 16:54 Temperature 98.2 F Pulse Rate 99 H 76 Respiratory Rate 20 Blood Pressure 169/83 H 145/86 H Pulse Oximetry 93 97 Oxygen Delivery Method Nasal Cannula Room Air Oxygen Flow Rate 3 <Priyanka Frank DO - Last Filed: 12/31/22 07:24> Orders Ordered: Discontinued Medications Oxymetazoline HCl (Oxymetazoline Nasal [place] 30 Ml) 2 sprays NASAL NOW ONE Stop: 12/30/22 15:42 Last Admin: 12/30/22 15:44 Dose: 2 sprays Documented By: RB Vital Signs Vital signs: Vital Signs - 8 hr 12/30/22 15:27 12/30/22 16:54 Temperature 98.2 F Pulse Rate 99 H 76 Respiratory Rate 20 Blood Pressure 169/83 H 145/86 H Pulse Oximetry 93 97 Oxygen Delivery Method Nasal Cannula Room Air Oxygen Flow Rate 3 MDM - Epistaxis <Christiano Blount PA-C - Last Filed: 12/30/22 18:02> MDM Narrative Medical decision making narrative: MDM * differential diagnosis includes but not limited to anterior bleed, posterior bleed, nasal fracture * Prior records reviewed: Patient was here a month ago for an acute COPD reaction. Chronically on 3 L home oxygen. Was found to be positive for parainfluenza. Eventually discharged * My lab interpretation: None obtained * My imgaing interpretation: None obtained * Clinical Decision Rules/Scores evaluated: None * Independent discussions with: None ED Course: This is a 82-year-old male presents emergency department due to a nosebleed. On initial and she the room patient had a nasal clamp on and no bleeding was noted. Afrin was administered by nursing which affectively cause the nose to stop bleeding. On exam after bleeding stopped no nasal septal hematomas noted. No difficulty breathing or swallowing. No trauma to the nasal bone. Shared Decision Making: Discussed plan with patient who is comfortable with the plan Social Considerations: None Disposition: Discharged to home Discharge Plan Departure Patient Disposition: Home Clinical Impression: Epistaxis Instructions: DI for Nosebleed Activity Restrictions/Additional Instructions: Thank you for coming to the [facility] Emergency Department today. I am glad that we are able to stop the nose bleeding. You may by Afrin [id number] as well as we discussed. I recommend you work with the primary care provider to find alternative to the nasal cannula or a different model that may dry out the inside of your nose LEs. You may also use nasal saline sprays to help avoid it from drying out. I hope you feel better soon. Prescriptions: No Action simvastatin 20 mg tablet 20 mg PO ONCE HS albuterol sulfate 90 mcg/actuation HFA aerosol inhaler 90 mcg INHALATION Q4HR fluoxetine 40 mg capsule 40 mg PO BID trazodone 50 mg tablet 50 mg PO BEDTIME tamsulosin 0.4 mg capsule 0.4 mg PO BEDTIME fluticasone propion-salmeterol [Wixela Inhub] 500-50 mcg/dose blister with device 50 inh INHALATION BID Spiriva Respimat 2.5 mcg/actuation mist 2.5 mcg INHALATION DAILY furosemide 40 mg Tablet 40 mg PO QAM albuterol sulfate 90 mcg/actuation HFA aerosol inhaler 90 mcg INHALATION Q4H loratadine [Allergy Relief (loratadine)] 10 mg Tablet 10 mg PO DAILY aspirin 81 mg Capsule 81 mg PO DAILY prednisone 20 mg Tablet 60 mg PO DAILY Qty: 60 1RF Rx Instructions: 3 tablets daily for 2 days and then 2 tablets daily. Remainder of taper per Dr. Cole take with food levofloxacin 500 mg tablet 500 mg PO DAILY Qty: 7 0RF Referrals: Oli Cole MD [Primary Care Provider] - Stand Alone Forms: Patient Portal/API <Priyanka Frank DO - Last Filed: 12/31/22 07:24> Cosign ED Attending Cosignature Attestation: I was immediately available in the department for consultation. Documentation has been reviewed.
[2022-12-30] MEDS: OXYMETAZOLINE NASAL SPRAY 30 ML 2 SPRAYS NASAL (15:44)
[2022-12-30 16:54] VITALS: BP 145/86; PULSE 76; O2SAT 97
== END 2022-12-30 16:54 | disposition home or self-care (01) ==
PROVIDERS: Emergency Provider Physician Assistant Medical; PCP Family Medicine
DX: R04.0 Epistaxis (principal)
CPT/HCPCS: 99282; 99284

== ENCOUNTER → 2023-02-07 10:00 | Outpatient (CLI) | payer OTHER, SELFPAY ==
[2022-12-04 01:02] VITALS: BMI 364.8
--- NOTE | 2023-02-07 10:03 | DI.US.S_ITS ---
PROCEDURE: US ABD AORTA ANEURYSM SCREEN INDICATIONS: HX SMOKING TECHNIQUE: Real-time scanning was performed of the aorta and proximal common iliac arteries, with image documentation. COMPARISON: None. FINDINGS: Aorta: Abdominal aorta is normal in caliber throughout its length. Proximal aorta measures 2.5 cm. Mid aorta measures 1.6 cm. Distal aorta measures 1.8 cm. Iliacs: Proximal common iliac arteries are normal in caliber. Right common iliac measures 0.8 cm. Left common iliac measures 1.0 cm. IMPRESSION: Negative screening ultrasound for abdominal aortic aneurysm. Dictated by: Rell Zavala M.D. on 02/07/2023 at 12:22 Approved by: Rell Zavala M.D. on 02/07/2023 at 12:23
[2023-02-07 12:40] LABS: Add Manual Diff / Slide Review NO; Basophils Absolute Auto 0 /uL (0-100); Basophils Percent Auto 0.7 % (0-2); Eosinophils Absolute Auto 100 /uL (0-450); Eosinophils Percent Auto 2.8 % (2-4); Hematocrit 36.3 % (41-53); Hemoglobin 12.2 g/dL (13.5-17.5); Lymphocytes Absolute Auto 1100 /uL (1100-4500); Lymphocytes Percent Auto 20.8 % (25-40); Mean Corpuscular HGB Conc 33.7 % (30-36); Mean Corpuscular Hemoglobin 31.1 PG (26-34); Mean Corpuscular Volume 92.3 fL (80-100); Monocytes Absolute Auto 500 /uL (0-900); Monocytes Percent Auto 9.1 % (3-14); Neutrophils Absolute Auto 3500 /uL (1500-7000); Neutrophils Percent Auto 66.6 % (50-75); Platelet Count 258 X10^3/uL (150-400); Red Blood Cell Count 3.93 X10^6/uL (4.5-5.9); Red Cell Distribution Width 15.9 % (11.6-14.8); White Blood Cell Count 5.3 X10^3/uL (4.5-11.0)
[2023-02-07 12:48] LABS: Hemoglobin A1C% w Est Avg Glu 5.5 % (4.0-6.0)
[2023-02-07 13:16] LABS: Alanine Aminotransferase 19 IU/L (<50); Albumin 3.8 g/dL (3.5-5.0); Albumin Globulin Ratio 1.5 (1.0-2.8); Alkaline Phosphatase 93 U/L (38-126); Aspartate Aminotransferase 26 IU/L (17-59); Bilirubin Total 0.4 mg/dL (0.2-1.3); Blood Urea Nitrogen 18 mg/dL (9-20); Calcium 9.4 mg/dL (8.4-10.2); Carbon Dioxide 27 mmol/L (22-32); Chloride 106 mmol/L (98-107); Cholesterol 125 mg/dL (140-199); Estimated Glomerular Filt Rate 56 mL/min (>60); Globulin 2.6 g/dL (1.7-4.1); Glucose 95 mg/dL (80-110); HDL Cholesterol 54 mg/dL (40-60); HEMOLYSIS < 15 (0-50); LDL Cholesterol Calculated 50 mg/dL (<100); Potassium 4.6 mmol/L (3.4-5.1); Sodium 140 mmol/L (137-145); Total Protein 6.4 g/dL (6.3-8.2); Triglycerides 106 mg/dL (35-150)
[2023-02-07 13:34] LABS: TSH w/ Reflex to FT4 2.46 uIU/mL (0.47-4.68)
== END ==
PROVIDERS: PCP Family Medicine; Referring Provider Internal Medicine Cardiovascular Disease; Visit Provider Internal Medicine Cardiovascular Disease
DX: I50.32 Chronic diastolic (congestive) heart failure (principal); Z87.891 Personal history of nicotine dependence; E78.5 Hyperlipidemia, unspecified; Z13.1 Encounter for screening for diabetes mellitus; Z13.6 Encounter for screening for cardiovascular disorders
CPT/HCPCS: 36415; 76706; 80053; 80061; 83036; 83735; 84443; 85025

== ENCOUNTER 2023-03-27 14:15 | Outpatient (RCR) | payer OTHER, SELFPAY ==
[2022-12-04 01:02] VITALS: BMI 364.8
== END 2023-03-27 16:15 ==
LOC: PUL 14:15
PROVIDERS: PCP Family Medicine; Referring Provider Family Medicine; Visit Provider Family Medicine
DX: J44.9 Chronic obstructive pulmonary disease, unspecified (principal)
CPT/HCPCS: 94626